=== PATIENT | female | born 1980 | race Caucasian/White ===

== ENCOUNTER 2016-10-09 18:01 | Inpatient (IN) | payer OTHER ==
--- NOTE | 2016-10-09 18:47 | PDOC ---
History of Present Illness - General History Source: Patient, Old Records Exam Limitations: No Limitations - History of Present Illness Initial Comments: 10/09/16 19:46 The patient is a 36 year old female, with a significant past medical history of hepatitis C and polysubstance abuse (Heroin/Cocaine/Benzodiazepines - intermittent use since age 17), who presents to the emergency department from [facility] with wounds to the bilateral upper extremities. The patient presented to [facility] earlier today requesting detox but after an initial evaluation at [facility], she was sent to the ED for further evaluation regarding the wounds to the bilateral upper extremities. The patient states that she has had these wounds since June 2015. The patient states that these wounds initially started out as track solorio but due to stressful life events (the passing of her father after a terminal illness) she began to scratch at the wounds. The patient reports that she went to the ED at [facility] for these symptoms in June 2016, had x-rays done and was discharged on PO antibiotics with instructions to follow up with a wound care clinic. However, the patient reports that she never followed up with wound care. The patient does report a cough, but notes that this has been a chronic issue for years, a result of her daily smoking. The patient denies loss of sensation to the upper extremities. The patient denies chest pain or shortness of breath. The patient denies fever, chills, nausea, vomiting, diarrhea or dysuria. The patient was most recently tested for HIV in June 2016 while at the [facility] ED, the result of which she reports was negative. LMP: the patient reports very irregular menstrual cycles (3 menstrual periods in the past 6 years). Allergies: None reported. Past Surgical History: None reported. Social History: Current everyday smoker (4-10 cigarettes/day). Reported polysubstance abuse: Heroin - last use this morning/Cocaine - last used yesterday/Benzodiazepines - last used yesterday. Denies alcohol use. <Alina Alvarez - Last Filed: 10/09/16 21:25> <Ki Singleton - Last Filed: 10/09/16 22:38> - General Chief Complaint: Wound Stated Complaint: Wound Time Seen by Provider: 10/09/16 18:21 Past History <Alina Alvarez - Last Filed: 10/09/16 21:25> - Past Medical History Anemia: No Asthma: No Cancer: No Cardiac Disorders: No CVA: No COPD: No CHF: No Dementia: No Diabetes: No GI Disorders: No Disorders: No HTN: No Hypercholesterolemia: No Kidney Stones: No Liver Disease: Yes Suicide Attempt (Hx): Yes (tried to overdose in 05/05) Seizures: Yes (A FEW YEARS AGO) Thyroid Disease: No - Reproductive History PID: No - Psycho/Social/Smoking Cessation Hx Anxiety: Yes Suicidal Ideation: No Smoking History: Current every day smoker Have you smoked in the past 12 months: Yes Number of Cigarettes Smoked Daily: 15 'Breaking Loose' booklet given: 10/15/14 Hx Alcohol Use: No Drug/Substance Use Hx: Yes Substance Use Type: Cocaine, Heroin, Tranquilizers Hx Substance Use Treatment: Yes <Ki Singleton - Last Filed: 10/09/16 22:38> - Past Medical History Allergies/Adverse Reactions: Allergies Allergy/AdvReac Type Severity Reaction Status Date / Time No Known Allergies Allergy Verified 10/09/16 19:05 Home Medications: Ambulatory Orders NK [No Known Home Medication] 10/09/16 Review of Systems - Review of Systems Able to Perform ROS?: Yes Comments:: 10/09/16 18:57 CONSTITUTIONAL: Absent: Fever, Chills, Diaphoresis, Generalized Weakness, Malaise, Loss of Appetite HEENT: Absent: Rhinorrhea, Nasal Congestion, Throat Pain, Throat Swelling, Difficulty Swallowing, Mouth Swelling, Ear Pain, Eye Pain, Visual Changes CARDIOVASCULAR: Absent: Chest Pain, Syncope, Palpitations, Irregular Heart Rate, Lightheadedness , Peripheral Edema RESPIRATORY: Absent: Cough, Shortness of Breath, SOB with Exertion, Orthopnea, Wheezing, Stridor, Hemoptysis GASTROINTESTINAL: Absent: Abdominal pain, Abdominal Distension, Nausea, Vomiting, Diarrhea, Constipation, Melena, Hematochezia GENITOURINARY: Absent: Dysuria, Frequency, Urgency, Hesitancy, Flank Pain, Genital Pain MUSCULOSKELETAL: Absent: Myalgia, Arthralgia, Joint Swelling, Back pain, Neck Pain SKIN: Present: +Wounds to the bilateral forearms Absent: Pallor HEMATOLOGIC/IMMUNOLOGIC: Absent: Easy Bleeding, Easy Bruising, Lymphadenopathy, Frequent infections ENDOCRINE: Absent: Unexplained Weight Gain, Unexplained Weight Loss, Heat Intolerance, Cold Intolerance NEUROLOGIC: Absent: Headache, Focal Weakness, Paresthesias, Vertigo, Lightheadedness, Unsteady Gait, Seizure, Mental Status Changes, Incontinence PSYCHIATRIC: Absent: Anxiety, Depression <Alina Alvarez - Last Filed: 10/09/16 21:25> *Physical Exam - Physical Exam Comments: 10/09/16 19:26 GENERAL: The patient is awake, alert, and fully oriented, in no acute distress. HEAD: Normal with no signs of trauma. EYES: Pupils equal, round and reactive to light, extraocular movements intact, sclera anicteric, conjunctiva clear. ENT: Ears normal, nares patent, oropharynx clear without exudates. Moist mucous membranes. NECK: Normal range of motion, supple without lymphadenopathy, JVD, or masses. LUNGS: Breath sounds equal, clear to auscultation bilaterally. No wheezes, and no crackles. HEART: Regular rate and rhythm, normal S1 and S2 without murmur, rub or gallop. ABDOMEN: Soft, nontender, normoactive bowel sounds. No guarding, no rebound. No masses. EXTREMITIES: See SKIN section. Normal range of motion, no edema. No clubbing or cyanosis. NEUROLOGICAL: Cranial nerves II through XII grossly intact. Normal speech, normal gait. PSYCH: Normal mood, normal affect. SKIN: Left upper extremity, 5 x 12 cm chronic ulcer with areas of pink granulation and yellow/green exudate, small areas of escar. Right upper extremity, 7 x 6 cm chronic granulating ulcer of the ulnar forearm below the elbow. Hyperpigmentation around the right and left ankles, bilateral scarring and induration from previous injections. <Alina Alvarez - Last Filed: 10/09/16 21:25> ED Treatment Course - LABORATORY CBC & Chemistry Diagram: 10/09/16 19:50 10/09/16 19:00 <Alina Alvarez - Last Filed: 10/09/16 21:25> - LABORATORY CBC & Chemistry Diagram: 10/09/16 19:50 10/09/16 19:00 <Ki Signleton - Last Filed: 10/09/16 22:38> Medical Decision Making - Medical Decision Making 10/09/16 21:25 EXAM: RAD/CHEST PA & LAT Reviewed By: Dr. Farid Abdo IMPRESSION: Unremarkable examination without evidence of acute lung disease. EXAM: RAD/FOREARM - RIGHT Reviewed By: Dr. Kaiden Dumont IMPRESSION: The alignment is satisfactory. No gross bone or joint abnormality is seen. No bone destruction or periosteal evaluation is identified. There is significant skin irregularity along posterior aspect of the proximal and mid right forearm consistent with the clinical history of skin ulcers with soft tissue air. EXAM: RAD/FOREARM - LEFT Reviewed By: Dr. Kaiden Dumont IMPRESSION: The alignment is satisfactory. No gross bone or joint abnormality is seen. No bone destruction or periosteal evaluation is identified. There is significant skin irregularity consistent with clinical history of ulcerations seen along posterior aspect of the proximal mid and mid to distal portion of the forearm with soft tissue. <Alina Alvarez - Last Filed: 10/09/16 21:25> - Medical Decision Making 10/09/16 20:53 Patient with history of polysubstance abuse including heroin, cocaine, and benzodiazepines. She presented today to [facility] for admission for detox. They evaluated her medically and sent her to the [facility] for medical admission for treatment of her chronic upper extremity skin ulcers for wound care along with detox consultation with Dr. Scottie Borjas. Laboratory studies reviewed. White blood cell count is normal. The patient has microcytic anemia. ESR and CRP are pending. Renal function is normal. Patient has a history of hepatitis C without cirrhosis. Her liver function tests are satisfactory. Patient will be admitted for wound evaluation of her upper extremities, dressing changes, and substance abuse consultation with Dr. Scottie Borjas. Laboratory Tests 10/09/16 10/09/16 19:00 19:50 WBC 4.2 D RBC 4.72 Hgb 11.1 D Hct 34.6 MCV 73.4 L MCHC 31.9 L RDW 16.5 H D Plt Count 268 D MPV 7.6 Neutrophils % 52.1 Lymphocytes % 37.7 Monocytes % 6.5 Eosinophils % 3.3 Basophils % 0.4 Sodium 138 Potassium 3.8 Chloride 105 Carbon Dioxide 26 Anion Gap 7 L BUN 9 Creatinine 0.6 Creat Clearance w eGFR > 60 Random Glucose 96 Calcium 8.2 L Total Bilirubin 0.2 D AST 29 D ALT 22 Alkaline Phosphatase 90 Total Protein 7.8 Albumin 3.0 L 10/09/16 20:58 The scribe's documentation has been prepared under my direction and personally reviewed by me in its entirety. I have confirmed that the note above accurately reflects all work, treatment, procedures, and medical decision- making performed by me. 10/09/16 21:13 <Ki Singleton - Last Filed: 10/09/16 22:38> *DC/Admit/Observation/Transfer - Attestations Scribe Attestion: 10/09/16 18:55 Documentation prepared by Alina Alvarez, acting as coroner/medical examiner for Ki Singleton MD. <Alina Alvarez - Last Filed: 10/09/16 21:25> - Discharge Dispostion Admit: Yes Decision to Admit order Date/Time: 10/09/16 22:[address] Michelle Gold. Accepted for admission. <Ki Singleton - Last Filed: 10/09/16 22:38> Diagnosis at time of Disposition: Polysubstance (including opioids) dependence with physiol dependence Ulcer of upper extremity Qualifiers: Non-pressure ulcer stage: with necrosis of muscle Qualified Code(s): L98.493 - Non-pressure chronic ulcer of skin of other sites with necrosis of muscle - Discharge Dispostion Condition at time of disposition: Stable
[2016-10-09 20:03] LABS: BASOPHIL 0.4 % (0-2.0); EOSINOPHIL 3.3 % (0-4.5); MCH 23.4 pg (25.7-33.7); MCHC 31.9 g/dl (32.0-36.0); MEAN CELL VOLUME 73.4 fl (80-96); MEAN PLT VOLUME 7.6 fl (7.5-11.1); NEUTROPHILS 52.1 % (42.8-82.8); PLATELET COUNT 268 K/MM3 (134-434); RDW 16.5 % (11.6-15.6); WHITE BLOOD COUNT 4.2 K/mm3 (4.0-10.0)
[2016-10-09 20:28] LABS: ALK PHOS 90 U/L (45-117); ANION GAP 7 (8-16); BILIRUBIN,TOTAL 0.2 mg/dL (0.2-1.0); CALCIUM 8.2 mg/dL (8.5-10.1); CO2 26 mmol/L (21-32); COCKROFT - GAULT 108.7915; CREATININE 0.6 mg/dL (0.55-1.02); GLUCOSE,RANDOM 96 mg/dL (74-106); SGOT/AST 29 U/L (15-37); SGPT/ALT 22 U/L (12-78); TOT PROT 7.8 g/dl (6.4-8.2)
[2016-10-09] MEDS ORDERED: METHADONE HCL 10 MG TABLET (FOR DETOX USE ONLY) PO ONE (21:14)
[2016-10-09] MEDS ORDERED: METHADONE HCL 10 MG TABLET ONE (21:24)
[2016-10-09] MEDS ORDERED: METHADONE HCL 10 MG TABLET PO ONE (21:30)
--- NOTE | 2016-10-09 23:55 | HP ---
CHIEF COMPLAINT: Bilateral Upper Extremity Ulcers, Detox- Heroin, Cocaine, Benzodiazepine PCP: None HISTORY OF PRESENT ILLNESS: This is a 36 y/o female with a past medical history of Polysubstance Abuse- Heroin, Cocaine, Benzodiazepine. Who presents to the emergency department from [facility] for Detox sent in for evaluation of bilateral upper extremity ulcers. The patient states that she has had these wounds since June 2015. The patient states that these wounds initially started out as track solorio but due to stressful life events (the passing of her father after a terminal illness) she began to scratch at the wounds. The patient reports that she went to the ED at [facility] for these symptoms in June 2016, had x-rays done and was discharged on PO antibiotics with instructions to follow up with a wound care clinic. The patient reports completing the full course of antibiotics. However, the patient reports that she never followed up with wound care. She reports cleaning the wounds at home with soap and water, using a topical ointment and applying gauze. Patient reports that when she uses the gauze she notes yellow drainage and an odor. The patient does report a cough, but notes that this has been a chronic issue for years, a result of her daily smoking. The patient denies loss of sensation to the upper extremities. The patient denies chest pain or shortness of breath. The patient denies fever, chills, nausea, vomiting, diarrhea or dysuria. The patient was most recently tested for HIV in June 2016 while at the [facility] ED, the result of which she reports was negative. LMP: the patient reports very irregular menstrual cycles (3 menstrual periods in the past 6 years ). ER course was notable for: (1) Xray- B/L forearm (2) No WBC, afebrile (3) CRP 2.4, ESR 42 Recent Travel: [place] PAST MEDICAL HISTORY: Polysubstance Abuse Anxiety Depression PTSD Seizures (age 23) PAST SURGICAL HISTORY: None Social History: Smoking: Cigarettes daily Alcohol: Denies Drugs: Heroin, Cocaine, Benzodiazipines, last use today Family History: None Allergies No Known Allergies Allergy (Verified 10/09/16 19:05) HOME MEDICATIONS: Home Medications Medication Instructions Recorded NK [No Known Home Medication] 10/09/16 REVIEW OF SYSTEMS CONSTITUTIONAL: Absent: fever, chills, diaphoresis, generalized weakness, malaise, loss of appetite, weight change HEENT: Absent: rhinorrhea, nasal congestion, throat pain, throat swelling, difficulty swallowing, mouth swelling, ear pain, eye pain, visual changes CARDIOVASCULAR: Absent: chest pain, syncope, palpitations, irregular heart rate, lightheadedness , peripheral edema RESPIRATORY: Absent: cough, shortness of breath, dyspnea with exertion, orthopnea, wheezing, stridor, hemoptysis GASTROINTESTINAL: Absent: abdominal pain, abdominal distension, nausea, vomiting, diarrhea, constipation, melena, hematochezia GENITOURINARY: Absent: dysuria, frequency, urgency, hesitancy, hematuria, flank pain, genital pain MUSCULOSKELETAL: Absent: myalgia, arthralgia, joint swelling, back pain, neck pain SKIN: bilateral upper extremity ulcers Absent: rash, itching, pallor HEMATOLOGIC/IMMUNOLOGIC: Absent: easy bleeding, easy bruising, lymphadenopathy, frequent infections ENDOCRINE: Absent: unexplained weight gain, unexplained weight loss, heat intolerance, cold intolerance NEUROLOGIC: Absent: headache, focal weakness or paresthesias, dizziness, unsteady gait, seizure, mental status changes, bladder or bowel incontinence PSYCHIATRIC: Absent: anxiety, depression, suicidal or homicidal ideation, hallucinations. PHYSICAL EXAMINATION GENERAL:Thin, awake, alert, and fully oriented, in no acute distress. HEAD: Normal with no signs of trauma. EYES: Pupils equal, round and reactive to light, extraocular movements intact, sclera anicteric, conjunctiva clear. No lid lag. EARS, NOSE, THROAT: Ears normal, nares patent, oropharynx clear without exudates. Moist mucous membranes. NECK: Normal range of motion, supple without lymphadenopathy, JVD, or masses. LUNGS: Breath sounds equal, clear to auscultation bilaterally. No wheezes, and no crackles. No accessory muscle use. HEART: Regular rate and rhythm, normal S1 and S2 without murmur, rub or gallop. ABDOMEN: Soft, nontender, not distended, normoactive bowel sounds, no guarding, no rebound, no masses. No hepatomegaly or splenomegaly. MUSCULOSKELETAL: Normal range of motion at all joints. No bony deformities or tenderness. No CVA tenderness. UPPER EXTREMITIES: 2+ pulses, warm, well-perfused. No cyanosis. No clubbing. No peripheral edema. LOWER EXTREMITIES: 2+ pulses, warm, well-perfused. No calf tenderness. No peripheral edema. NEUROLOGICAL: Cranial nerves II-XII intact. Normal speech. Normal gait. PSYCHIATRIC: Cooperative. Good eye contact. Appropriate mood and affect. SKIN: Left upper extremity, 5 x 12 cm chronic ulcer with areas of pink granulation and yellow/green exudate, small areas of escar. Right upper extremity, 7 x 6 cm chronic granulating ulcer of the ulnar forearm below the elbow. Hyperpigmentation around the right and left ankles, bilateral scarring and induration from previous injection. normal capillary refill. Laboratory Results - last 24 hr 3 10/09/16 10/09/16 10/09/16 19:00 19:00 19:00 WBC RBC Hgb Hct MCV MCHC RDW Plt Count MPV Neutrophils % Lymphocytes % Monocytes % Eosinophils % Basophils % ESR 42 H Sodium 138 Potassium 3.8 Chloride 105 Carbon Dioxide 26 Anion Gap 7 L BUN 9 Creatinine 0.6 Creat Clearance w eGFR > 60 Random Glucose 96 Calcium 8.2 L Total Bilirubin 0.2 D AST 29 D ALT 22 Alkaline Phosphatase 90 C-Reactive Protein 2.4 H Total Protein 7.8 Albumin 3.0 L 3 10/09/16 19:50 WBC 4.2 D RBC 4.72 Hgb 11.1 D Hct 34.6 MCV 73.4 L MCHC 31.9 L RDW 16.5 H D Plt Count 268 D MPV 7.6 Neutrophils % 52.1 Lymphocytes % 37.7 Monocytes % 6.5 Eosinophils % 3.3 Basophils % 0.4 ESR Sodium Potassium Chloride Carbon Dioxide Anion Gap BUN Creatinine Creat Clearance w eGFR Random Glucose Calcium Total Bilirubin AST ALT Alkaline Phosphatase C-Reactive Protein Total Protein Albumin ASSESSMENT/PLAN: This is a 36 y/o female with a PMHx of: Polysubstance Abuse- Heroin, Cocaine, Benzodiazepines. Admitted for Bilateral Upper Extremity Ulcers, Detox for further evaluation of their emergent condition. 1. ID: Bilateral Upper Extremity Ulcers - Chronic likely secondary to IVDU vs Osteomyeltitis - Xray of upper extremity- see above - No WBC, Afebrile - Appreciate ID Consult - Wound Care Nurse - Dressing changes - CBC in am - Monitor vitals 2. PolySubstance Abuse - Appreciate Detox Consult - Given Methadone in ED - Will order Methadone x1 for AM for withdrawal - Valium prn withdrawal - Drug cessation discussed with patient 3. Tobacco Dependency - Nicoderm Patch - Smoking Cessation discussed with patient 4. Seizure Disorder - Seizure Precautions 4. FEN - Patient tolerates PO fluids - Replete lytes as indicated - Regular Diet 5. DVT Prophylaxis - OOB Code Status: Patient is a Full Code Problem List - Problem (1) Ulcer of upper extremity Code(s): L98.499 - NON-PRESSURE CHRONIC ULCER OF SKIN OF SITES W UNSP SEVERITY Qualifiers: Non-pressure ulcer stage: with necrosis of muscle Qualified Code(s): L98.493 - Non-pressure chronic ulcer of skin of other sites with necrosis of muscle (2) Polysubstance (including opioids) dependence with physiol dependence Code(s): F19.20 - OTHER PSYCHOACTIVE SUBSTANCE DEPENDENCE, UNCOMPLICATED (3) Cocaine dependence Code(s): F14.20 - COCAINE DEPENDENCE, UNCOMPLICATED (4) Heroin dependence Code(s): F11.20 - OPIOID DEPENDENCE, UNCOMPLICATED (5) MDD (major depressive disorder), recurrent episode, moderate Code(s): F33.1 - MAJOR DEPRESSIVE DISORDER, RECURRENT, MODERATE (6) PTSD (post-traumatic stress disorder) Code(s): F43.10 - POST-TRAUMATIC STRESS DISORDER, UNSPECIFIED (7) Anxiety and depression Code(s): F41.8 - OTHER SPECIFIED ANXIETY DISORDERS (8) Nicotine dependence Code(s): F17.200 - NICOTINE DEPENDENCE, UNSPECIFIED, UNCOMPLICATED (9) DVT prophylaxis Code(s): [id number] - Visit type - Emergency Visit Emergency Visit: Yes ED Registration Date: 10/09/16 Care time: The patient presented to the Emergency Department on the above date and was hospitalized for further evaluation of their emergent condition. - New Patient This patient is new to me today: Yes Date on this admission: 10/09/16 - Critical Care Critical Care patient: No
[2016-10-10 04:43] VITALS: BMI 19.8
[2016-10-10] MEDS ORDERED: METHADONE HCL 10 MG TABLET ONE (07:28)
[2016-10-10] MEDS: METHADONE HCL 10 MG TABLET PO ONE ×2 (07:29→12:25)
[2016-10-10] MEDS: diazePAM 5 MG TABLET PO PRN ×2 (07:32→20:40)
--- NOTE | 2016-10-10 09:58 | EKG ---
Test Reason : Blood Pressure : / mmHG Vent. Rate : 091 BPM Atrial Rate : 091 BPM P-R Int : 156 ms QRS Dur : 096 ms QT Int : 378 ms P-R-T Axes : 081 -50 028 degrees QTc Int : 464 ms NORMAL SINUS RHYTHM POSSIBLE LEFT ATRIAL ENLARGEMENT LEFT AXIS DEVIATION INCOMPLETE RIGHT BUNDLE BRANCH BLOCK ABNORMAL ECG NO PREVIOUS ECGS AVAILABLE Confirmed by RICHARD ELLIOTT MD ([id number]) on 10/10/2016 9:58:16 AM Referred By: Confirmed By:RICHARD ELLIOTT MD
--- NOTE | 2016-10-10 12:05 | PN ---
Physical Exam: SUBJECTIVE: Patient seen and examined. She denies pain or discomfort on the ulcerations of her arms. OBJECTIVE: Patient is a very thin female in no acute distress during exam. She has two very large wounds on her bilateral arms: Left upper forearm with large chronic ulcer 5w x 12L Right upper forearm with large chronic ulcer of 7w x 6cm Both wounds with pink granulation tissue, no odor with yellow exudate She also has bilateral ankle areas of discoloration track alea scars from previous drug injections blood cultures ordered Vital Signs Period Temp Pulse Resp BP Sys/Richardson Pulse Ox Last 24 Hr 97.9 F-98.5 F 83-89 18-18 133-142/69-86 94 GENERAL: The patient is awake, alert, and fully oriented, in no acute distress. HEAD: Normal with no signs of trauma. EYES: PERRL, extraocular movements intact, sclera anicteric, conjunctiva clear. No ptosis. ENT: Ears normal, nares patent, oropharynx clear without exudates, moist mucous membranes. NECK: Trachea midline, full range of motion, supple. LUNGS: Breath sounds equal, some scattered rhonchi on bilateral lower lobes, mild congestion HEART: Regular rate and rhythm, S1, S2 without murmur, rub or gallop. ABDOMEN: Soft, nontender, nondistended, normoactive bowel sounds, no guarding, no rebound, no hepatosplenomegaly, no masses. EXTREMITIES: 2+ pulses, warm, well-perfused, no edema. NEUROLOGICAL: Normal speech, gait not observed. PSYCH: Normal mood, normal affect. SKIN: She has two very large wounds on her bilateral arms (see above) and multiple bilateral ankle discoloration, track alea, scars from iv drug use Active Medications Generic Name Dose Route Start Last Admin Trade Name Freq PRN Reason Stop Dose Admin Diazepam 10 mg 10/10/16 00:01 10/10/16 07:32 Valium - PO 10/13/16 00:01 10 mg Q4H PRN Administration WITHDRAWAL(CONT SUBST) Vancomycin HCl 1,250 mg/ 250 mls @ 125 mls/hr 10/10/16 12:00 Dextrose IVPB DAILY@1200 MAURY Protocol Piperacillin Sod/Tazobactam Sod 50 mls @ 100 mls/hr 10/10/16 12:00 Zosyn 3.375gm Ivpb (Pre-Docked) IVPB Q8H-IV MAURY Protocol Methadone HCl 10 mg 10/10/16 23:00 Dolophine - PO 10/10/16 23:01 ONCE@2300 ONE Methadone HCl 20 mg 10/11/16 10:00 Dolophine - PO 10/11/16 10:01 ONCE ONE Methadone HCl 10 mg 10/14/16 10:00 Dolophine - PO 10/14/16 10:01 ONCE ONE Methadone HCl 15 mg 10/12/16 10:00 Dolophine - PO 10/12/16 10:01 ONCE ONE Methadone HCl 15 mg 10/13/16 10:00 Dolophine - PO 10/13/16 10:01 ONCE ONE Methadone HCl 5 mg 10/15/16 06:00 Dolophine - PO 10/15/16 06:01 ONCE@0600 ONE ASSESSMENT/PLAN: Patient is a 36 year old female with a significant past medical history of polysubstance abuse and IV drug use. She presents to the ED on 10/09/2016 and was admitted for opioid dependence and ulcerations of bilateral upper extremity. Patient states she has been taking care of the wounds herself at home and often notices yellow drainage and an odor. She was recently at the ED at [place] earlier this year and was discharged on PO antibiotics with instructions to follow up with a wound care clinic but she never did. Muscular Skeletal/ID Bilateral upper extremity forearm wounds Assessment/Plan: Large bilateral wound on forearms exposing the underlying flesh There is serosang drainage, mild odor with yellow slough/tissue Patient denies pain to these ulcerations States she has these ulcerations secondary to IV drug use On vanco and zosyn started 10/10/2016 Placed consult for plastic surgery to evaluate for possible skin grafts WBC within normal limits, remains afebrile and hemodynamically stable antibiotics for prophylactic use as pt is a high risk for infection Wound cultured, Wound care consulted for orders Blood cultures ordered Psyche Polysubstance abuse Assessment/Plan: On methadone taper Valium as needed F.E.N. Fluids: Can tolerate PO Electrolytes: within normal limits Nutrition: regular diet Prophylaxis: GI: Protonix 40mg PO DVT: OOB ambulation, SCDs when in bed If prolonged stay will order AC Disposition. Requires inpatient hospitalization. Full Code. Visit type - Emergency Visit Emergency Visit: Yes ED Registration Date: 10/09/16 Care time: The patient presented to the Emergency Department on the above date and was hospitalized for further evaluation of their emergent condition. - New Patient This patient is new to me today: Yes Date on this admission: 10/10/16 - Critical Care Critical Care patient: No - Discharge Referral Referred to [facility] No
[2016-10-10 13:26] LABS: BASOPHIL 0.2 % (0-2.0); EOSINOPHIL 2.6 % (0-4.5); MCH 23.4 pg (25.7-33.7); MCHC 31.6 g/dl (32.0-36.0); MEAN CELL VOLUME 73.9 fl (80-96); MEAN PLT VOLUME 7.4 fl (7.5-11.1); NEUTROPHILS 52.5 % (42.8-82.8); PLATELET COUNT 259 K/MM3 (134-434); RDW 16.1 % (11.6-15.6); WHITE BLOOD COUNT 3.7 K/mm3 (4.0-10.0)
[2016-10-10 13:49] LABS: ALBUMIN 2.8 g/dl (3.4-5.0); ALK PHOS 88 U/L (45-117); ANION GAP 9 (8-16); BILIRUBIN,TOTAL 0.3 mg/dL (0.2-1.0); CALCIUM 8.4 mg/dL (8.5-10.1); CO2 25 mmol/L (21-32); CREATININE 0.6 mg/dL (0.55-1.02); GLUCOSE,RANDOM 133 mg/dL (74-106); SGOT/AST 25 U/L (15-37); SGPT/ALT 18 U/L (12-78); TOT PROT 7.4 g/dl (6.4-8.2)
--- NOTE | 2016-10-10 14:46 | CONSULT ---
[id number] involving both Forearms, - History of Present Illness History of Present Illness: The patient is a 36 year old female, with a significant past medical history of hepatitis C and polysubstance abuse (Heroin/Cocaine/Benzodiazepines - intermittent use since age 17), who presents to the emergency department from [facility] with wounds to the bilateral upper extremities. The patient presented to [facility] earlier today requesting detox but after an initial evaluation at detox, she was sent to the ED for further evaluation regarding the wounds to the bilateral upper extremities. The patient states that she has had these wounds since June 2015. The patient states that these wounds initially started out as track solorio but due to stressful life events (the passing of her father after a terminal illness) she began to scratch at the wounds. The patient reports that she went to the ED at [facility] for these symptoms in June 2016, had x-rays done and was discharged on PO antibiotics with instructions to follow up with a wound care clinic. However, the patient reports that she never followed up with wound care. The patient does report a cough, but notes that this has been a chronic issue for years, a result of her daily smoking. The patient denies loss of sensation to the upper extremities. The patient denies chest pain or shortness of breath. The patient denies fever, chills, nausea, vomiting, diarrhea or dysuria. The patient was most recently tested for HIV in June 2016 while at the [facility] ED, the result of which she reports was negative. LMP: the patient reports very irregular menstrual cycles (3 menstrual periods in the past 6 years). Allergies: None reported. Past Surgical History: None reported. Social History: Current everyday smoker (4-10 cigarettes/day). Reported polysubstance abuse: Heroin - last use this morning/Cocaine - last used yesterday/Benzodiazepines - last used yesterday. Denies alcohol use. - Past Medical History ...LMP: 10/14/14 - Alcohol/Substance Use Hx Alcohol Use: Yes - Smoking History Smoking history: Current every day smoker Have you smoked in the past 12 months: Yes Aproximately how many cigarettes per day: 15 Home Medications - Allergies Allergies/Adverse Reactions: Allergies Allergy/AdvReac Type Severity Reaction Status Date / Time No Known Allergies Allergy Verified 10/09/16 19:05 - Home Medications Home Medications: Ambulatory Orders Silver Sulfadiazine 1% Top Cr [Silvadene -] 1 applic TP BID #1 jar 10/15/16 Sulfamethoxazole/Trimethoprim [Bactrim DS -] 1 each PO BID #10 tablet 10/15/16 Family Disease History - Family Disease History Family Disease History: Diabetes: Grandparent (HTN), Heart Disease: Grandparent , CA: Father (prostate), Mother (laryngeal) Physical Exam Vital Signs: Vital Signs Temperature 97.9 F 10/10/16 06:00 Pulse Rate 83 10/10/16 06:00 Respiratory Rate 18 10/10/16 06:00 Blood Pressure 142/69 10/10/16 06:00 O2 Sat by Pulse Oximetry (%) 94 L 10/10/16 04:58 Labs: CBC, BMP 10/10/16 13:10 10/10/16 13:10 Assessment/Plan Evaluation : History Examination, Decision Focused Examination of both forearms: Full thickness loss of skin with fibrinous tissue, granulation tissue skin edges hyperbole, discharge positive, no clinical odor, erythema, odor Moving wrist, fingers well including elbow function Recommendation : Plastic reconstruction with skin grafts; Wound is not ready all grafts will be lost and new wounds will be created . Silvidine cream BID Follow Up in [place] wound clinic while patient is being treated for several conditions (outlined) Psychology / Evaluations and treatment , patient anxiety, self inflicting injuries and urge to eat her own scabs She may benefit with wound care in wound clinic, Wound Vac, Porcine skin as temporary wound dressing after infection is cleared Thanks Dr Kurtz
[2016-10-10] MEDS: VANCOMYCIN 1,250 MG in DEXTROSE 5%-WATER - 250 ML IVPB SCH (16:05)
--- NOTE | 2016-10-10 16:44 | CONSULT ---
Consult Detox [facility] Reason for Current Admission/Consult: Heroin withdrawal sx. Referred by:: Brittni Eric NP - History History of Present Illness: 36 y/o woman with a long hx. of drug dependence is admitted for large open wound both upper extremities. - History Source History Provided By: Patient, Medical Record Limitations to Obtaining History: No Limitations - Alcohol/Substance Use Hx Substance Use: Yes - Current Drug/Alcohol Use Alprazolam (Xanax) Route: Oral Frequency: Daily Amount used: 6mg Age of first use: 29 Date of Last Use: 10/08/16 Heroin Route: Injection Frequency: Daily Amount used: 5-12 bags Age of first use: 17 Date of Last Use: 10/09/16 - Past Medical History ...LMP: 10/14/14 - Significant Medical Findings: Laboratory Last Values WBC 4.6 K/mm3 (4.0-10.0) D 10/13/16 05:58 RBC 4.28 M/mm3 (3.60-5.2) 10/13/16 05:58 Hgb 10.3 GM/dL (10.7-15.3) L 10/13/16 05:58 Hct 31.1 % (32.4-45.2) L 10/13/16 05:58 MCV 72.7 fl (80-96) L 10/13/16 05:58 MCHC 33.1 g/dl (32.0-36.0) 10/13/16 05:58 RDW 16.2 % (11.6-15.6) H 10/13/16 05:58 Plt Count 256 K/MM3 (134-434) 10/13/16 05:58 MPV 7.6 fl (7.5-11.1) 10/13/16 05:58 Neutrophils % 44.0 % (42.8-82.8) 10/13/16 05:58 Lymphocytes % 42.0 % (8-40) H 10/13/16 05:58 Monocytes % 11.1 % (3.8-10.2) H 10/13/16 05:58 Eosinophils % 2.6 % (0-4.5) 10/13/16 05:58 Basophils % 0.3 % (0-2.0) 10/13/16 05:58 ESR 42 mm/hr (0-20) H 10/09/16 19:00 Sodium 137 mmol/L (136-145) 10/13/16 05:58 Potassium 4.0 mmol/L (3.5-5.1) 10/13/16 05:58 Chloride 100 mmol/L (98-107) 10/13/16 05:58 Carbon Dioxide 29 mmol/L (21-32) 10/13/16 05:58 Anion Gap 8 (8-16) 10/13/16 05:58 BUN 10 mg/dL (7-18) 10/13/16 05:58 Creatinine 0.6 mg/dL (0.55-1.02) 10/13/16 05:58 Creat Clearance w eGFR > 60 (>60) 10/13/16 05:58 Random Glucose 100 mg/dL (74-106) 10/13/16 05:58 Calcium 8.2 mg/dL (8.5-10.1) L 10/13/16 05:58 Total Bilirubin 0.2 mg/dL (0.2-1.0) 10/13/16 05:58 AST 55 U/L (15-37) H 10/13/16 05:58 ALT 40 U/L (12-78) 10/13/16 05:58 Alkaline Phosphatase 94 U/L (45-117) 10/13/16 05:58 C-Reactive Protein 2.4 MG/DL (0.00-0.3) H 10/09/16 19:00 Total Protein 7.0 g/dl (6.4-8.2) 10/13/16 05:58 Albumin 2.8 g/dl (3.4-5.0) L 10/13/16 05:58 labs noted COWS - Scale Resting Pulse: 0= IL 80 or Below Sweatin=Flushed/Facial Moisture Restless Observation: 1= Difficult to Sit Still Pupil Size: 1= Pupils >than Normal Bone or Joint Aches: 2= Severe Diffuse Aches Runny Nose/ Eye Tearin= Runny Nose/Eyes GI Upset > 30mins: 2= Nausea/Diarrhea Tremor Observation: 2= Slight Tremor Visible Yawning Observation: 1= 1-2x During Session Anxiety or Irritability: 2=Irritable/Anxious Goose Flesh Skin: 0=Smooth Skin COWS Score: 15 Assessment Plan - Diagnosis (1) Opioid dependence with withdrawal Status: Acute - Medication Detox Regimen/Protocol: Methadone
[2016-10-10] MEDS: PIPERACILLIN/TAZOB 3.375 GM 50 ML IVPB SCH ×2 (17:58→18:16)
[2016-10-10] MEDS: NICOTINE 14 MG/24 HOURS TOPICAL PATCH TD SCH (21:25)
[2016-10-10] MEDS: BENZOCAINE 20 % GEL 9 GM TUBE MM PRN (22:14)
[2016-10-10] MEDS ORDERED: METHADONE HCL 10 MG TABLET PO ONE (23:00)
[2016-10-11] MEDS: PIPERACILLIN/TAZOB 3.375 GM 50 ML IVPB SCH ×3 (01:52→18:09)
[2016-10-11 09:34] LABS: BASOPHIL 0.5 % (0-2.0); EOSINOPHIL 3.3 % (0-4.5); MCH 23.6 pg (25.7-33.7); MEAN CELL VOLUME 73.9 fl (80-96); MEAN PLT VOLUME 7.4 fl (7.5-11.1); NEUTROPHILS 37.5 % (42.8-82.8); PLATELET COUNT 235 K/MM3 (134-434); RDW 16.6 % (11.6-15.6); WHITE BLOOD COUNT 2.9 K/mm3 (4.0-10.0)
[2016-10-11 09:59] LABS: ALBUMIN 2.7 g/dl (3.4-5.0); ANION GAP 8 (8-16); CALCIUM 8.1 mg/dL (8.5-10.1); CO2 27 mmol/L (21-32); GLUCOSE,RANDOM 81 mg/dL (74-106)
[2016-10-11] MEDS ORDERED: METHADONE HCL 10 MG TABLET PO ONE (10:00)
[2016-10-11 10:03] LABS: ALK PHOS 83 U/L (45-117); BILIRUBIN,TOTAL 0.3 mg/dL (0.2-1.0); CREATININE 0.6 mg/dL (0.55-1.02); SGOT/AST 38 U/L (15-37); SGPT/ALT 26 U/L (12-78); TOT PROT 7.2 g/dl (6.4-8.2)
[2016-10-11] MEDS: NICOTINE 14 MG/24 HOURS TOPICAL PATCH TD SCH (10:10)
--- NOTE | 2016-10-11 10:14 | PN ---
Physical Exam: SUBJECTIVE: Patient seen and examined. She is very upset, wants to go smoke a cigarette. Wants to go back to [facility] to detox. OBJECTIVE: wound culture still pending but growing rare gram pos. cocci in pairs Patient very anxious, advised her to stay until we can identify the wound culture and prescribe the appropriate antibiotics Patient states she wants to go home against medical advice Dr. Comer and I spoke to patient and asked her to reconsider leaving AMA, pt to decide. Vital Signs Period Temp Pulse Resp BP Sys/Richardson Pulse Ox Last 24 Hr 97.8 F-98.7 F 71-86 18-18 107-131/60-76 96 GENERAL: The patient is awake, alert, and fully oriented, in no acute distress. HEAD: Normal with no signs of trauma. EYES: PERRL, extraocular movements intact, sclera anicteric, conjunctiva clear. No ptosis. ENT: Ears normal, nares patent, oropharynx clear without exudates, moist mucous membranes. NECK: Trachea midline, full range of motion, supple. LUNGS: Breath sounds equal, some scattered rhonchi on bilateral lower lobes, mild congestion HEART: Regular rate and rhythm, S1, S2 without murmur, rub or gallop. ABDOMEN: Soft, nontender, nondistended, normoactive bowel sounds, no guarding, no rebound, no hepatosplenomegaly, no masses. EXTREMITIES: 2+ pulses, warm, well-perfused, no edema. NEUROLOGICAL: Normal speech, gait not observed. PSYCH: Anxious @ times SKIN: She has two very large wounds on her bilateral arms and multiple bilateral ankle discoloration, track solorio, scars from iv drug use. Left forearm with large chronic ulcer - exposed flesh: 5cm x 12cm x 0.2 depth Right upper forearm with large chronic ulcer - exposed flesh: 7cm W x 6cmL x 0.2 depth Laboratory Results - last 24 hr 10/10/16 10/10/16 10/11/16 13:10 13:10 08:25 WBC 3.7 L 2.9 L RBC 4.46 4.75 Hgb 10.4 L 11.2 Hct 33.0 35.1 MCV 73.9 L 73.9 L MCHC 31.6 L 32.0 RDW 16.1 H 16.6 H Plt Count 259 235 MPV 7.4 L 7.4 L Neutrophils % 52.5 37.5 L D Lymphocytes % 38.0 50.5 H D Monocytes % 6.7 8.2 Eosinophils % 2.6 3.3 Basophils % 0.2 0.5 Sodium 141 Potassium 4.0 Chloride 107 Carbon Dioxide 25 Anion Gap 9 BUN 8 Creatinine 0.6 Creat Clearance w eGFR > 60 Random Glucose 133 H D Calcium 8.4 L Total Bilirubin 0.3 D AST 25 ALT 18 Alkaline Phosphatase 88 Total Protein 7.4 Albumin 2.8 L 10/11/16 08:25 WBC RBC Hgb Hct MCV MCHC RDW Plt Count MPV Neutrophils % Lymphocytes % Monocytes % Eosinophils % Basophils % Sodium 142 Potassium 4.3 Chloride 107 Carbon Dioxide 27 Anion Gap 8 BUN 8 Creatinine 0.6 Creat Clearance w eGFR > 60 Random Glucose 81 D Calcium 8.1 L Total Bilirubin 0.3 AST 38 H D ALT 26 D Alkaline Phosphatase 83 Total Protein 7.2 Albumin 2.7 L Active Medications Generic Name Dose Route Start Last Admin Trade Name Freq PRN Reason Stop Dose Admin Benzocaine 1 applic 10/10/16 20:27 10/10/16 22:14 Anbesol - MM 1 applic Q2H PRN Administration PAIN Diazepam 10 mg 10/10/16 00:01 10/10/16 20:40 Valium - PO 10/13/16 00:01 10 mg Q4H PRN Administration WITHDRAWAL(CONT SUBST) Vancomycin HCl 1,250 mg/ 250 mls @ 125 mls/hr 10/10/16 12:00 10/10/16 16:05 Dextrose IVPB 125 mls/hr DAILY@1200 MAURY Administration Protocol Piperacillin Sod/Tazobactam Sod 50 mls @ 100 mls/hr 10/10/16 12:00 10/11/16 01: 52 Zosyn 3.375gm Ivpb (Pre-Docked) IVPB 100 mls/hr Q8H-IV MAURY Administration Protocol Methadone HCl 10 mg 10/14/16 10:00 Dolophine - PO 10/14/16 10:01 ONCE ONE Methadone HCl 15 mg 10/12/16 10:00 Dolophine - PO 10/12/16 10:01 ONCE ONE Methadone HCl 15 mg 10/13/16 10:00 Dolophine - PO 10/13/16 10:01 ONCE ONE Methadone HCl 5 mg 10/15/16 06:00 Dolophine - PO 10/15/16 06:01 ONCE@0600 ONE Nicotine 14 mg 10/10/16 21:00 10/10/16 21:25 Nicoderm Patch - TD 14 mg DAILY MAURY Administration ASSESSMENT/PLAN: Patient is a 36 year old female with a significant past medical history of polysubstance abuse and IV drug use. She presents to the ED on 10/09/2016 and was admitted for opioid dependence and ulcerations of bilateral upper extremity. Patient states she has been taking care of the wounds herself at home and often notices yellow drainage and an odor. She was recently at the ED at [facility] earlier this year and was discharged on PO antibiotics with instructions to follow up with a wound care clinic but she never did. Muscular Skeletal/ID Bilateral upper extremity forearm wounds Assessment/Plan: Large bilateral wound on forearms exposing the underlying flesh There is serosang drainage, mild odor with yellow slough/tissue Patient denies pain to these ulcerations States she has these ulcerations secondary to IV drug use On vanco and zosyn started 10/10/2016 ESR and Creact. protein elevated As per plastic surgery, pt is not currently a candidate for skin grafts She would need to follow up at the wound care clinic for continued wound care WBC within normal limits, remains afebrile and hemodynamically stable antibiotics for prophylactic use as pt is a high risk for infection - has exposed flesh (no skin) on areas of bilateral forearm Wound cultures still pending but growing rare gram pos. cocci in pairs Blood cultures ordered and pending Psyche Polysubstance abuse Assessment/Plan: On methadone taper with valium as needed Dr. Scottie Borjas consulted and following F.E.N. Fluids: Can tolerate PO Electrolytes: within normal limits Nutrition: regular diet Prophylaxis: GI: Protonix 40mg PO DVT: OOB ambulation, SCDs when in bed If prolonged stay will order AC, but pt is ambulatory Disposition. Requires inpatient hospitalization. On discharge will need follow up at the wound care clinic. Likely discharge back to [facility] on Thursday. Full Code. Visit type - Emergency Visit Emergency Visit: Yes ED Registration Date: 10/09/16 Care time: The patient presented to the Emergency Department on the above date and was hospitalized for further evaluation of their emergent condition. - New Patient This patient is new to me today: No - Critical Care Critical Care patient: No - Discharge Referral Referred to [facility] No
[2016-10-11] MEDS: VANCOMYCIN 1,250 MG in DEXTROSE 5%-WATER - 250 ML IVPB SCH (11:47)
--- NOTE | 2016-10-11 12:37 | PN ---
Progress Note, Physician History of Present Illness: doing well but wants to leave doesnt like being here wound dressing changed - Current Medication List Current Medications: Active Medications Benzocaine (Anbesol -) 1 applic MM Q2H PRN PRN Reason: PAIN Last Admin: 10/10/16 22:14 Dose: 1 applic Diazepam (Valium -) 10 mg PO Q4H PRN PRN Reason: WITHDRAWAL(CONT SUBST) Stop: 10/13/16 00:01 Last Admin: 10/10/16 20:40 Dose: 10 mg Vancomycin HCl 1,250 mg/ (Dextrose) 250 mls @ 125 mls/hr IVPB DAILY@1200 MAURY PRN Reason: Protocol Last Admin: 10/11/16 11:47 Dose: 125 mls/hr Piperacillin Sod/Tazobactam Sod (Zosyn 3.375gm Ivpb (Pre-Docked)) 50 mls @ 100 mls/hr IVPB Q8H-IV MAURY PRN Reason: Protocol Last Admin: 10/11/16 10:32 Dose: 100 mls/hr Methadone HCl (Dolophine -) 10 mg PO ONCE ONE Stop: 10/14/16 10:01 Methadone HCl (Dolophine -) 15 mg PO ONCE ONE Stop: 10/12/16 10:01 Methadone HCl (Dolophine -) 15 mg PO ONCE ONE Stop: 10/13/16 10:01 Methadone HCl (Dolophine -) 5 mg PO ONCE@0600 ONE Stop: 10/15/16 06:01 Nicotine (Nicoderm Patch -) 14 mg TD DAILY [facility] Last Admin: 10/11/16 10:10 Dose: Not Given - Objective Vital Signs: Vital Signs Temperature 97.8 F 10/11/16 06:00 Pulse Rate 71 10/11/16 06:00 Respiratory Rate 18 10/11/16 06:00 Blood Pressure 107/65 10/11/16 06:00 O2 Sat by Pulse Oximetry (%) 96 10/10/16 21:00 Constitutional: Yes: Calm, Mild Distress Cardiovascular: Yes: Regular Rate and Rhythm Respiratory: Yes: Regular, CTA Bilaterally Gastrointestinal: Yes: Normal Bowel Sounds, Soft Musculoskeletal: Yes: Other Extremities: Yes: Other Wound/Incision: Yes: Other (as explained in the consult full thickness loss of the skin) Neurological: Yes: Alert, Oriented Psychiatric: Yes: Alert, Oriented Labs: CBC, BMP 10/11/16 08:25 10/11/16 08:25 Assessment/Plan 1. Bilateral Upper Extremity Ulcers 2. PolySubstance Abuset 3. Tobacco Dependency 4. Seizure Disorder plan await wound cx abx started detox noted plastics recommendation
[2016-10-11] MEDS: diazePAM 5 MG TABLET PO PRN (23:32)
[2016-10-12] MEDS: PIPERACILLIN/TAZOB 3.375 GM 50 ML IVPB SCH ×2 (01:12→09:10)
[2016-10-12 08:43] LABS: BASOPHIL 0.4 % (0-2.0); EOSINOPHIL 2.9 % (0-4.5); MCH 23.9 pg (25.7-33.7); MCHC 32.7 g/dl (32.0-36.0); MEAN PLT VOLUME 7.2 fl (7.5-11.1); NEUTROPHILS 44.4 % (42.8-82.8); PLATELET COUNT 244 K/MM3 (134-434); RDW 16.3 % (11.6-15.6); WHITE BLOOD COUNT 3.5 K/mm3 (4.0-10.0)
[2016-10-12 09:09] LABS: ALBUMIN 2.8 g/dl (3.4-5.0); ANION GAP 7 (8-16); CO2 29 mmol/L (21-32); CREATININE 0.7 mg/dL (0.55-1.02); GLUCOSE,RANDOM 100 mg/dL (74-106); SGOT/AST 50 U/L (15-37); SGPT/ALT 34 U/L (12-78); TOT PROT 7.2 g/dl (6.4-8.2)
[2016-10-12 09:11] LABS: ALK PHOS 93 U/L (45-117); BILIRUBIN,TOTAL 0.2 mg/dL (0.2-1.0)
[2016-10-12] MEDS: NICOTINE 14 MG/24 HOURS TOPICAL PATCH TD SCH (09:12)
[2016-10-12] MEDS ORDERED: METHADONE HCL 5 MG TABLET PO ONE (10:00)
--- NOTE | 2016-10-12 10:23 | PN ---
Physical Exam: SUBJECTIVE: Patient seen and examined. Denies chest pain, shortness of breath. Denies arm pain. OBJECTIVE: Patient appears calmer today Explained POC with her and she is in agreement Likely d/c tomorrow to [facility] Wound care sensitivities reviewed Silvadene cream ordered BID - wound care orders placed Vital Signs Period Temp Pulse Resp BP Sys/Richardson Pulse Ox Last 24 Hr 98.0 F-98.5 F 70-91 18-20 108-119/56-61 93 GENERAL: The patient is awake, alert, and fully oriented, in no acute distress. HEAD: Normal with no signs of trauma. EYES: PERRL, extraocular movements intact, sclera anicteric, conjunctiva clear. No ptosis. ENT: Ears normal, nares patent, oropharynx clear without exudates, moist mucous membranes. NECK: Trachea midline, full range of motion, supple. LUNGS: Breath sounds equal, some scattered rhonchi on bilateral lower lobes, mild congestion HEART: Regular rate and rhythm, S1, S2 without murmur, rub or gallop. ABDOMEN: Soft, nontender, nondistended, normoactive bowel sounds, no guarding, no rebound, no hepatosplenomegaly, no masses. EXTREMITIES: 2+ pulses, warm, well-perfused, no edema. NEUROLOGICAL: Normal speech, gait not observed. PSYCH: Anxious @ times SKIN: She has two very large wounds on her bilateral arms and multiple bilateral ankle discoloration, track solorio, scars from iv drug use. Left forearm with large chronic ulcer - exposed flesh: 5cm x 12cm x 0.2 depth Right upper forearm with large chronic ulcer - exposed flesh: 7cm W x 6cmL x 0.2 depth Laboratory Results - last 24 hr 10/12/16 10/12/16 08:00 08:00 WBC 3.5 L RBC 4.62 Hgb 11.0 Hct 33.8 MCV 73.0 L MCHC 32.7 RDW 16.3 H Plt Count 244 MPV 7.2 L Neutrophils % 44.4 Lymphocytes % 43.0 H Monocytes % 9.3 Eosinophils % 2.9 Basophils % 0.4 Sodium 141 Potassium 3.8 Chloride 105 Carbon Dioxide 29 Anion Gap 7 L BUN 9 Creatinine 0.7 Creat Clearance w eGFR > 60 Random Glucose 100 D Calcium 8.0 L Total Bilirubin 0.2 D AST 50 H D ALT 34 D Alkaline Phosphatase 93 Total Protein 7.2 Albumin 2.8 L Active Medications Generic Name Dose Route Start Last Admin Trade Name Freq PRN Reason Stop Dose Admin Benzocaine 1 applic 10/10/16 20:27 10/10/16 22:14 Anbesol - MM 1 applic Q2H PRN Administration PAIN Diazepam 10 mg 10/10/16 00:01 10/11/16 23:32 Valium - PO 10/13/16 00:01 10 mg Q4H PRN Administration WITHDRAWAL(CONT SUBST) Vancomycin HCl 1,250 mg/ 250 mls @ 125 mls/hr 10/10/16 12:00 10/11/16 11:47 Dextrose IVPB 125 mls/hr DAILY@1200 MAURY Administration Protocol Piperacillin Sod/Tazobactam Sod 50 mls @ 100 mls/hr 10/10/16 12:00 10/12/16 09: 10 Zosyn 3.375gm Ivpb (Pre-Docked) IVPB 100 mls/hr Q8H-IV MAURY Administration Protocol Methadone HCl 10 mg 10/14/16 10:00 Dolophine - PO 10/14/16 10:01 ONCE ONE Methadone HCl 15 mg 10/13/16 10:00 Dolophine - PO 10/13/16 10:01 ONCE ONE Methadone HCl 5 mg 10/15/16 06:00 Dolophine - PO 10/15/16 06:01 ONCE@0600 ONE Nicotine 14 mg 10/10/16 21:00 10/12/16 09:12 Nicoderm Patch - TD Not Given DAILY MAURY Silver Sulfadiazine 1 applic 10/12/16 10:00 Silvadene - TP BID MAURY ASSESSMENT/PLAN: Patient is a 36 year old female with a significant past medical history of polysubstance abuse and IV drug use. She presents to the ED on 10/09/2016 and was admitted for opioid dependence and ulcerations of bilateral upper extremity. Patient states she has been taking care of the wounds herself at home and often notices yellow drainage and an odor. She was recently at the ED at [facility] earlier this year and was discharged on PO antibiotics with instructions to follow up with a wound care clinic but she never did. Muscular Skeletal/ID Bilateral upper extremity forearm wounds Assessment/Plan: Large bilateral wound on forearms exposing the underlying flesh There is serosang drainage, mild odor with yellow slough/tissue Patient denies pain to these ulcerations States she has these ulcerations secondary to IV drug use On vanco and zosyn started 10/10/2016 ESR and Creact. protein elevated As per plastic surgery, pt is not currently a candidate for skin grafts She would need to follow up at the wound care clinic for continued wound care WBC within normal limits, remains afebrile and hemodynamically stable antibiotics for prophylactic use as pt is a high risk for infection - has exposed flesh (no skin) on areas of bilateral forearm Wound cultures final with sensitivities, ID following Blood cultures negative to date Psyche Polysubstance abuse Assessment/Plan: On methadone taper with valium as needed Dr. Scottie Borjas consulted and following Patient to be d/c to [place], likely Thursday F.E.N. Fluids: Can tolerate PO Electrolytes: within normal limits Nutrition: regular diet Prophylaxis: GI: Protonix 40mg PO DVT: OOB ambulation, SCDs when in bed If prolonged stay will order AC - defer for now,pt is ambulatory Disposition. Requires inpatient hospitalization. On discharge will need follow up at the wound care clinic. Likely discharge back to [facility] on Thursday. Full Code. Visit type - Emergency Visit Emergency Visit: Yes ED Registration Date: 10/09/16 Care time: The patient presented to the Emergency Department on the above date and was hospitalized for further evaluation of their emergent condition. - New Patient This patient is new to me today: No - Critical Care Critical Care patient: No - Discharge Referral Referred to [facility] No
[2016-10-12] MEDS: VANCOMYCIN 1,250 MG in DEXTROSE 5%-WATER - 250 ML IVPB SCH (13:44)
--- NOTE | 2016-10-12 14:23 | CONSULT ---
Consult Consult Specialty:: infectious diseases Reason for Consultation:: open wounds infected on both arms - History of Present Illness Chief Complaint: send from detox History of Present Illness: 36 y/o female with a past medical history of Polysubstance Abuse- Heroin, Cocaine, Benzodiazepine. Who presents to the emergency department from [facility] for Detox sent in for evaluation of bilateral upper extremity ulcers. The patient states that she has had these wounds since June 2015. The patient states that these wounds initially started out as track solorio but due to stressful life events ) she began to scratch at the wounds. The patient reports that she went to the ED at [facility] for these symptoms in June 2016, had x-rays done and was discharged on PO antibiotics with instructions to follow up with a wound care clinic. The patient reports completing the full course of antibiotics. However, the patient reports that she never followed up with wound care. She reports cleaning the wounds at home with soap and water, using a topical ointment and applying gauze. Patient reports that when she uses the gauze she notes yellow drainage and an odor. all the wounds the patient has are self inflicted patient also is very non cooperative initially but then did allow me to look at the wounds patient had initially gone to detox center and then was send here to be teated for the wounds patient denies any fever nausea or vomiting - History Source History Provided By: Patient, Medical Record Limitations to Obtaining History: Poor Historian - Past Medical History ...LMP: 10/14/14 - Alcohol/Substance Use Hx Alcohol Use: Yes - Smoking History Smoking history: Current every day smoker Have you smoked in the past 12 months: Yes Aproximately how many cigarettes per day: 15 Home Medications - Allergies Allergies/Adverse Reactions: Allergies Allergy/AdvReac Type Severity Reaction Status Date / Time No Known Allergies Allergy Verified 10/09/16 19:05 - Home Medications Home Medications: Ambulatory Orders NK [No Known Home Medication] 10/09/16 Family Disease History - Family Disease History Family Disease History: Diabetes: Grandparent (HTN), Heart Disease: Grandparent , CA: Father (prostate), Mother (laryngeal) Review of Systems - Review of Systems Constitutional: reports: No Symptoms Eyes: reports: No Symptoms HENT: reports: No Symptoms Neck: reports: No Symptoms Cardiovascular: reports: No Symptoms Respiratory: reports: No Symptoms Gastrointestinal: reports: No Symptoms Genitourinary: reports: No Symptoms Musculoskeletal: reports: No Symptoms Integumentary: reports: Change in Color, Erythema, Wound, Other Neurological: reports: No Symptoms Endocrine: reports: No Symptoms Hematology/Lymphatic: reports: No Symptoms Psychiatric: reports: No Symptoms Physical Exam Vital Signs: Vital Signs Temperature 98.5 F 10/12/16 05:56 Pulse Rate 80 10/12/16 09:00 Respiratory Rate 18 10/12/16 09:00 Blood Pressure 116/56 10/12/16 09:00 O2 Sat by Pulse Oximetry (%) 93 L 10/11/16 21:00 Constitutional: Yes: Calm, Mild Distress Eyes: Yes: Conjunctiva Clear HENT: Yes: Atraumatic Neck: Yes: Supple, Trachea Midline Cardiovascular: Yes: Regular Rate and Rhythm Respiratory: Yes: Regular, CTA Bilaterally Gastrointestinal: Yes: Normal Bowel Sounds, Soft Musculoskeletal: Yes: Other Extremities: Yes: Other Integumentary: Yes: Erythema, Other Wound/Incision: Yes: Other (Full thickness loss of skin with fibrinous tissue, granulation tissue skin edges hyperbole,discharge positive, no clinical odor, erythema, odor Moving wrist, fingers well including elbow function) Neurological: Yes: Alert, Oriented Psychiatric: Yes: Alert, Oriented Labs: CBC, BMP 10/12/16 08:00 10/12/16 08:00 Imaging - Results Chest X-ray: Report Reviewed, Image Reviewed X-ray: Report Reviewed, Image Reviewed Assessment/Plan 1. Bilateral Upper Extremity Ulcers 2. PolySubstance Abuset 3. Tobacco Dependency 4. Seizure Disorder plan wound cx abx started detox will ask plastic to see her
--- NOTE | 2016-10-12 14:31 | PN ---
Progress Note, Physician History of Present Illness: seems to be very happy today no complaints boyfreind in room dressing done - Current Medication List Current Medications: Active Medications Benzocaine (Anbesol -) 1 applic MM Q2H PRN PRN Reason: PAIN Last Admin: 10/10/16 22:14 Dose: 1 applic Diazepam (Valium -) 10 mg PO Q4H PRN PRN Reason: WITHDRAWAL(CONT SUBST) Stop: 10/13/16 00:01 Last Admin: 10/11/16 23:32 Dose: 10 mg Ceftriaxone Sodium 2 gm/ (Dextrose) 100 mls @ 200 mls/hr IVPB DAILY [facility] Methadone HCl (Dolophine -) 10 mg PO ONCE ONE Stop: 10/14/16 10:01 Methadone HCl (Dolophine -) 15 mg PO ONCE ONE Stop: 10/13/16 10:01 Methadone HCl (Dolophine -) 5 mg PO ONCE@0600 ONE Stop: 10/15/16 06:01 Nicotine (Nicoderm Patch -) 14 mg TD DAILY [facility] Last Admin: 10/12/16 09:12 Dose: Not Given Silver Sulfadiazine (Silvadene -) 1 applic TP BID [facility] - Objective Vital Signs: Vital Signs Temperature 98.5 F 10/12/16 05:56 Pulse Rate 80 10/12/16 09:00 Respiratory Rate 18 10/12/16 09:00 Blood Pressure 116/56 10/12/16 09:00 O2 Sat by Pulse Oximetry (%) 93 L 10/11/16 21:00 Constitutional: Yes: No Distress, Calm Cardiovascular: Yes: Regular Rate and Rhythm Respiratory: Yes: Regular, CTA Bilaterally Gastrointestinal: Yes: Normal Bowel Sounds, Soft Musculoskeletal: Yes: Other Extremities: Yes: Other Wound/Incision: Yes: Dressing Dry and Intact Neurological: Yes: Alert, Oriented Psychiatric: Yes: Alert, Oriented Labs: CBC, BMP 10/12/16 08:00 10/12/16 08:00 Assessment/Plan 1. Bilateral Upper Extremity Ulcers 2. PolySubstance Abuset 3. Tobacco Dependency 4. Seizure Disorder plan wound cx noted changed abx to ceftriaxone abx started detox noted plastics recommendation
[2016-10-12] MEDS: CEFTRIAXONE 100 ML IVPB SCH (15:25)
[2016-10-12] MEDS: SILVER SULFADIAZINE 1% TOP CREAM 50 GM JAR TP SCH ×2 (15:25→22:34)
[2016-10-12] MEDS: diazePAM 5 MG TABLET PO PRN (22:35)
[2016-10-13 08:18] LABS: BASOPHIL 0.3 % (0-2.0); EOSINOPHIL 2.6 % (0-4.5); MCHC 33.1 g/dl (32.0-36.0); MEAN CELL VOLUME 72.7 fl (80-96); MEAN PLT VOLUME 7.6 fl (7.5-11.1); PLATELET COUNT 256 K/MM3 (134-434); RDW 16.2 % (11.6-15.6); WHITE BLOOD COUNT 4.6 K/mm3 (4.0-10.0)
[2016-10-13 08:43] LABS: ALBUMIN 2.8 g/dl (3.4-5.0); ALK PHOS 94 U/L (45-117); ANION GAP 8 (8-16); BILIRUBIN,TOTAL 0.2 mg/dL (0.2-1.0); CALCIUM 8.2 mg/dL (8.5-10.1); CO2 29 mmol/L (21-32); CREATININE 0.6 mg/dL (0.55-1.02); GLUCOSE,RANDOM 100 mg/dL (74-106); SGOT/AST 55 U/L (15-37); SGPT/ALT 40 U/L (12-78)
[2016-10-13] MEDS: CEFTRIAXONE 100 ML IVPB SCH (09:32)
[2016-10-13] MEDS ORDERED: METHADONE HCL 5 MG TABLET PO ONE (10:00)
[2016-10-13] MEDS: NICOTINE 14 MG/24 HOURS TOPICAL PATCH TD SCH (10:06)
[2016-10-13] MEDS: SILVER SULFADIAZINE 1% TOP CREAM 50 GM JAR TP SCH ×2 (10:08→23:29)
[2016-10-13] MEDS: BENZOCAINE 20 % GEL 9 GM TUBE MM PRN (11:28)
--- NOTE | 2016-10-13 12:44 | PN ---
Physical Exam: SUBJECTIVE: Patient seen and examined at bedside. Wounds unwrapped and examined. OBJECTIVE: Vital Signs Period Temp Pulse Resp BP Sys/Richardson Pulse Ox Last 24 Hr 98 F-98.5 F 73-86 18-20 93-123/46-76 93-95 GENERAL: The patient is awake, alert, and fully oriented, in no acute distress. HEAD: Normal with no signs of trauma. EYES: PERRL, extraocular movements intact, sclera anicteric, conjunctiva clear. No ptosis. LUNGS: Breath sounds equal, clear to auscultation bilaterally, no wheezes, no crackles, no accessory muscle use. HEART: Regular rate and rhythm, S1, S2 without murmur, rub or gallop. ABDOMEN: Soft, nontender, nondistended, normoactive bowel sounds, no guarding, no rebound, no hepatosplenomegaly, no masses. UPPER EXTREMITIES: Wounds on both forearms unwrapped and examined. Full thickness loss; granulating tissue seen on borders of both wounds; copious serosanguinous drainage from both arms Laboratory Results - last 24 hr 10/13/16 10/13/16 05:58 05:58 WBC 4.6 D RBC 4.28 Hgb 10.3 L Hct 31.1 L MCV 72.7 L MCHC 33.1 RDW 16.2 H Plt Count 256 MPV 7.6 Neutrophils % 44.0 Lymphocytes % 42.0 H Monocytes % 11.1 H Eosinophils % 2.6 Basophils % 0.3 Sodium 137 Potassium 4.0 Chloride 100 Carbon Dioxide 29 Anion Gap 8 BUN 10 Creatinine 0.6 Creat Clearance w eGFR > 60 Random Glucose 100 Calcium 8.2 L Total Bilirubin 0.2 AST 55 H ALT 40 Alkaline Phosphatase 94 Total Protein 7.0 Albumin 2.8 L Active Medications Generic Name Dose Route Start Last Admin Trade Name Freq PRN Reason Stop Dose Admin Benzocaine 1 applic 10/10/16 20:27 10/13/16 11:28 Anbesol - MM 1 applic Q2H PRN Administration PAIN Diazepam 10 mg 10/10/16 00:01 10/12/16 22:35 Valium - PO 10/13/16 00:01 10 mg Q4H PRN Administration WITHDRAWAL(CONT SUBST) Ceftriaxone Sodium 100 mls @ 200 mls/hr 10/12/16 14:30 10/13/16 09:32 Rocephin 2gm Ivpb (Pre-Docked) IVPB 200 mls/hr DAILY [facility] Administration Methadone HCl 10 mg 10/14/16 10:00 Dolophine - PO 10/14/16 10:01 ONCE ONE Methadone HCl 5 mg 10/15/16 06:00 Dolophine - PO 10/15/16 06:01 ONCE@0600 ONE Nicotine 14 mg 10/10/16 21:00 10/13/16 10:06 Nicoderm Patch - TD Not Given DAILY [facility] Silver Sulfadiazine 1 applic 10/12/16 10:00 10/13/16 10:08 Silvadene - TP 1 applic BID [facility] Administration ASSESSMENT/PLAN 36 year-old woman with a significant PMH of hepatitis C and polysubstance abuse. Admitted for chronic bilateral forearm ulcers. Bilateral forearm ulcers --patient is new to me today; dressings taken down, copious drainage noted; no odor --seen and evaluated by plastics, not a candidate yet for grafts, wounds are not ready --continue twice-daily dressings with silvadene --continue IV antibiotics per ID Acute opioid withdrawal --completing methadone taper --Valium PRN F/E/N Fluids: PO intake adequate Electrolytes: replete as indicated Nutrition: regular diet Dispo: patient will finish detox here in the hospital; once transitioned to PO antibiotics should follow up in Wound Clinic; per Dr. Kurtz, patient may benefit from wound vac v. porcine skin. Full code. Visit type - Emergency Visit Emergency Visit: Yes ED Registration Date: 10/09/16 Care time: The patient presented to the Emergency Department on the above date and was hospitalized for further evaluation of their emergent condition. - New Patient This patient is new to me today: Yes Date on this admission: 10/13/16 - Critical Care Critical Care patient: No
--- NOTE | 2016-10-13 18:52 | PN ---
Progress Note, Physician History of Present Illness: doing well no complaints - Current Medication List Current Medications: Active Medications Benzocaine (Anbesol -) 1 applic MM Q2H PRN PRN Reason: PAIN Last Admin: 10/13/16 11:28 Dose: 1 applic Diazepam (Valium -) 10 mg PO Q4H PRN PRN Reason: WITHDRAWAL(CONT SUBST) Stop: 10/13/16 00:01 Last Admin: 10/12/16 22:35 Dose: 10 mg Ceftriaxone Sodium (Rocephin 2gm Ivpb (Pre-Docked)) 100 mls @ 200 mls/hr IVPB DAILY [facility] Last Admin: 10/13/16 09:32 Dose: 200 mls/hr Methadone HCl (Dolophine -) 10 mg PO ONCE ONE Stop: 10/14/16 10:01 Methadone HCl (Dolophine -) 5 mg PO ONCE@0600 ONE Stop: 10/15/16 06:01 Nicotine (Nicoderm Patch -) 14 mg TD DAILY [facility] Last Admin: 10/13/16 10:06 Dose: Not Given Silver Sulfadiazine (Silvadene -) 1 applic TP BID [facility] Last Admin: 10/13/16 10:08 Dose: 1 applic - Objective Vital Signs: Vital Signs Temperature 97.5 F L 10/13/16 14:41 Pulse Rate 83 10/13/16 14:41 Respiratory Rate 20 10/13/16 14:41 Blood Pressure 126/62 10/13/16 14:41 O2 Sat by Pulse Oximetry (%) 95 10/13/16 09:00 Constitutional: Yes: No Distress, Calm Cardiovascular: Yes: Regular Rate and Rhythm Respiratory: Yes: Regular, CTA Bilaterally Gastrointestinal: Yes: Normal Bowel Sounds, Soft Musculoskeletal: Yes: Other Extremities: Yes: Other Wound/Incision: Yes: Dressing Dry and Intact, Other (wounds starting to look good) Neurological: Yes: Alert, Oriented Psychiatric: Yes: Alert, Oriented Labs: CBC, BMP 10/13/16 05:58 10/13/16 05:58 Assessment/Plan 1. Bilateral Upper Extremity Ulcers 2. PolySubstance Abuset 3. Tobacco Dependency 4. Seizure Disorder plan wound cx noted continue abx continue wound care
[2016-10-13] MEDS ORDERED: diazePAM 5 MG TABLET ONE (23:11)
[2016-10-13] MEDS: diazePAM 5 MG TABLET PO PRN (23:12)
[2016-10-14] MEDS: CEFTRIAXONE 100 ML IVPB SCH (09:43)
[2016-10-14] MEDS: NICOTINE 14 MG/24 HOURS TOPICAL PATCH TD SCH (09:43)
[2016-10-14] MEDS: SILVER SULFADIAZINE 1% TOP CREAM 50 GM JAR TP SCH ×2 (09:43→22:11)
[2016-10-14] MEDS ORDERED: METHADONE HCL 10 MG TABLET PO ONE (10:00)
--- NOTE | 2016-10-14 17:04 | PN ---
Physical Exam: SUBJECTIVE: Patient seen and examined by me. She is new to me today. Dressings unwrapped and assessed. OBJECTIVE: Vital Signs Period Temp Pulse Resp BP Sys/Richardson Pulse Ox Last 24 Hr 98.0 F-98.9 F 61-97 19-20 92-103/47-62 95 GENERAL: The patient is awake, alert, and fully oriented, in no acute distress. HEAD: Normal with no signs of trauma. EYES: PERRL, extraocular movements intact, sclera anicteric, conjunctiva clear. No ptosis. ENT: Ears normal, nares patent, oropharynx clear without exudates, moist mucous membranes. NECK: Trachea midline, full range of motion, supple. LUNGS: Breath sounds equal, clear to auscultation bilaterally, no wheezes, no crackles, no accessory muscle use. HEART: Regular rate and rhythm, S1, S2 without murmur, rub or gallop. ABDOMEN: Soft, nontender, nondistended, normoactive bowel sounds, no guarding, no rebound, no hepatosplenomegaly, no masses. EXTREMITIES: 2+ pulses, warm, well-perfused, no edema. NEUROLOGICAL: Cranial nerves II through XII grossly intact. Normal speech, gait not observed. PSYCH: Normal mood, normal affect. SKIN: Warm, dry, normal turgor, no rashes noted. Ovoid open wound to right forearm measuring 25cm x 8cm. Granulation tissue appreciated to wound margins. Center of wound is pink without signs of infection. Ovoid open wound to left forearm measuring 22cm x 7cm. Granulation tissue appreciated to wound margins. Center of wound is pink without signs of infection. Active Medications Generic Name Dose Route Start Last Admin Trade Name Freq PRN Reason Stop Dose Admin Benzocaine 1 applic 10/10/16 20:27 10/13/16 11:28 Anbesol - MM 1 applic Q2H PRN Administration PAIN Diazepam 10 mg 10/10/16 00:01 10/13/16 23:12 Valium - PO 10/13/16 00:01 10 mg Q4H PRN Administration WITHDRAWAL(CONT SUBST) Ceftriaxone Sodium 100 mls @ 200 mls/hr 10/12/16 14:30 10/14/16 09:43 Rocephin 2gm Ivpb (Pre-Docked) IVPB 200 mls/hr DAILY [facility] Administration Methadone HCl 5 mg 10/15/16 06:00 Dolophine - PO 10/15/16 06:01 ONCE@0600 ONE Nicotine 14 mg 10/10/16 21:00 10/14/16 09:43 Nicoderm Patch - TD Not Given DAILY [facility] Silver Sulfadiazine 1 applic 10/12/16 10:00 10/14/16 09:43 Silvadene - TP 1 applic BID [facility] Administration ASSESSMENT/PLAN: This is a 36 yo female with history of Hep C and polysubstance abuse. Wounds as noted above. Left forearm wound- -continue Silvadene dressing changes BID -continue Rocephin -monitor for s/s infection -ID following Right forearm wound- -continue Silvadene dressing changes BID -continue Rocephin -monitor for s/s infection -ID following Opiate dependence- -continue with methadone taper -Valium PRN -monitor for s/s withdrawal Tobacco dependence- -smoking cessation counseling offered and refused -continue nicotene patch F/E/N- -PO's as tolerated -replete as needed Visit type - Emergency Visit Emergency Visit: Yes ED Registration Date: 10/09/16 Care time: The patient presented to the Emergency Department on the above date and was hospitalized for further evaluation of their emergent condition. - New Patient This patient is new to me today: Yes Date on this admission: 10/14/16 - Critical Care Critical Care patient: No - Discharge Referral Referred to [facility] Med [facility] No
--- NOTE | 2016-10-14 20:00 | PN ---
Progress Note, Physician History of Present Illness: stable no new events no issues - Current Medication List Current Medications: Active Medications Benzocaine (Anbesol -) 1 applic MM Q2H PRN PRN Reason: PAIN Last Admin: 10/13/16 11:28 Dose: 1 applic Diazepam (Valium -) 10 mg PO Q4H PRN PRN Reason: WITHDRAWAL(CONT SUBST) Stop: 10/13/16 00:01 Last Admin: 10/13/16 23:12 Dose: 10 mg Ceftriaxone Sodium (Rocephin 2gm Ivpb (Pre-Docked)) 100 mls @ 200 mls/hr IVPB DAILY [facility] Last Admin: 10/14/16 09:43 Dose: 200 mls/hr Methadone HCl (Dolophine -) 5 mg PO ONCE@0600 ONE Stop: 10/15/16 06:01 Nicotine (Nicoderm Patch -) 14 mg TD DAILY [facility] Last Admin: 10/14/16 09:43 Dose: Not Given Silver Sulfadiazine (Silvadene -) 1 applic TP BID [facility] Last Admin: 10/14/16 09:43 Dose: 1 applic - Objective Vital Signs: Vital Signs Temperature 98.5 F 10/14/16 18:25 Pulse Rate 73 10/14/16 18:25 Respiratory Rate 20 10/14/16 18:25 Blood Pressure 106/52 10/14/16 18:25 O2 Sat by Pulse Oximetry (%) 95 10/13/16 21:00 Constitutional: Yes: No Distress, Calm Cardiovascular: Yes: Regular Rate and Rhythm Respiratory: Yes: Regular, CTA Bilaterally Gastrointestinal: Yes: Normal Bowel Sounds Musculoskeletal: Yes: Other Extremities: Yes: Other Wound/Incision: Yes: Dressing Dry and Intact Neurological: Yes: Alert, Oriented Psychiatric: Yes: Alert, Oriented Labs: CBC, BMP 10/13/16 05:58 10/13/16 05:58 Assessment/Plan 1. Bilateral Upper Extremity Ulcers 2. PolySubstance Abuset 3. Tobacco Dependency 4. Seizure Disorder plan continue wound care continue current mgmt will see the wounds tomorrow and make a decision rest as per primary
[2016-10-14] MEDS ORDERED: diazePAM 5 MG TABLET ONE (22:09)
[2016-10-14] MEDS: diazePAM 5 MG TABLET PO PRN (22:10)
[2016-10-15] MEDS ORDERED: METHADONE HCL 5 MG TABLET PO ONE (06:00)
[2016-10-15] MEDS: CEFTRIAXONE 100 ML IVPB SCH (09:51)
[2016-10-15] MEDS: SILVER SULFADIAZINE 1% TOP CREAM 50 GM JAR TP SCH (12:00)
--- NOTE | 2016-10-15 12:16 | PN ---
Progress Note, Physician History of Present Illness: patients wound seen looks good clean base good granulation tissue - Current Medication List Current Medications: Active Medications Benzocaine (Anbesol -) 1 applic MM Q2H PRN PRN Reason: PAIN Last Admin: 10/13/16 11:28 Dose: 1 applic Nicotine (Nicoderm Patch -) 14 mg TD DAILY [facility] Last Admin: 10/14/16 09:43 Dose: Not Given Silver Sulfadiazine (Silvadene -) 1 applic TP BID [facility] Last Admin: 10/14/16 22:11 Dose: 1 applic - Objective Vital Signs: Vital Signs Temperature 97.2 F L 10/15/16 06:00 Pulse Rate 63 10/15/16 06:00 Respiratory Rate 20 10/15/16 06:00 Blood Pressure 96/53 10/15/16 06:00 O2 Sat by Pulse Oximetry (%) 96 10/14/16 21:00 Constitutional: Yes: No Distress, Calm Cardiovascular: Yes: Regular Rate and Rhythm Respiratory: Yes: Regular, CTA Bilaterally Gastrointestinal: Yes: Normal Bowel Sounds, Soft Musculoskeletal: Yes: Other Extremities: Yes: Other (bilateral arm wounds noted wounds clean) Integumentary: Yes: Other Wound/Incision: Yes: Clean/Dry, Dressing Removed, Other (dressing redone) Labs: CBC, BMP 10/13/16 05:58 10/13/16 05:58 Assessment/Plan 1. Bilateral Upper Extremity Ulcers 2. PolySubstance Abuset 3. Tobacco Dependency 4. Seizure Disorder plan changed abx to oral continue it for 5 more days patient will need strict wound care if wound care not done patient will become infected again
[2016-10-15 14:23] VITALS: BP 102/54; PULSE 76; TEMP 97.6
[2016-10-15] MEDS: NICOTINE 14 MG/24 HOURS TOPICAL PATCH TD SCH (15:35)
--- NOTE | 2016-10-15 15:46 | DS ---
Physical Exam: SUBJECTIVE: Patient seen and examined OBJECTIVE: Vital Signs Period Temp Pulse Resp BP Sys/Richardson Pulse Ox Last 24 Hr 97.2 F-98.5 F 63-76 20-20 96-106/52-54 96 PHYSICAL EXAM GENERAL: The patient is awake, alert, and fully oriented, in no acute distress. HEAD: Normal with no signs of trauma. EYES: PERRL, extraocular movements intact, sclera anicteric, conjunctiva clear. No ptosis. ENT: Ears normal, nares patent, oropharynx clear without exudates, moist mucous membranes. NECK: Trachea midline, full range of motion, supple. LUNGS: Breath sounds equal, clear to auscultation bilaterally, no wheezes, no crackles, no accessory muscle use. HEART: Regular rate and rhythm, S1, S2 without murmur, rub or gallop. ABDOMEN: Soft, nontender, nondistended, normoactive bowel sounds, no guarding, no rebound, no hepatosplenomegaly, no masses. EXTREMITIES: 2+ pulses, warm, well-perfused, no edema. NEUROLOGICAL: Cranial nerves II through XII grossly intact. Normal speech, gait not observed. PSYCH: Normal mood, normal affect. SKIN: Warm, dry, normal turgor, no rashes noted. Right forearm ovoid wound measuring [id number] present. Wound margins show no s/s infection with granulation present. center of wound beefy red. Left forearm ovoid wound measuring [id number] present. Wound margins show no s/s infection with granulation present. center of wound beefy red. LABS Laboratory Tests 10/09/16 10/09/16 10/09/16 19:00 19:00 19:00 WBC RBC Hgb Hct MCV MCHC RDW Plt Count MPV Neutrophils % Lymphocytes % Monocytes % Eosinophils % Basophils % ESR 42 H Sodium 138 Potassium 3.8 Chloride 105 Carbon Dioxide 26 Anion Gap 7 L BUN 9 Creatinine 0.6 Creat Clearance w eGFR > 60 Random Glucose 96 Calcium 8.2 L Total Bilirubin 0.2 D AST 29 D ALT 22 Alkaline Phosphatase 90 C-Reactive Protein 2.4 H Total Protein 7.8 Albumin 3.0 L 10/09/16 10/10/16 10/10/16 19:50 13:10 13:10 WBC 4.2 D 3.7 L RBC 4.72 4.46 Hgb 11.1 D 10.4 L Hct 34.6 33.0 MCV 73.4 L 73.9 L MCHC 31.9 L 31.6 L RDW 16.5 H D 16.1 H Plt Count 268 D 259 MPV 7.6 7.4 L Neutrophils % 52.1 52.5 Lymphocytes % 37.7 38.0 Monocytes % 6.5 6.7 Eosinophils % 3.3 2.6 Basophils % 0.4 0.2 ESR Sodium 141 Potassium 4.0 Chloride 107 Carbon Dioxide 25 Anion Gap 9 BUN 8 Creatinine 0.6 Creat Clearance w eGFR > 60 Random Glucose 133 H D Calcium 8.4 L Total Bilirubin 0.3 D AST 25 ALT 18 Alkaline Phosphatase 88 C-Reactive Protein Total Protein 7.4 Albumin 2.8 L 10/11/16 10/11/16 10/12/16 08:25 08:25 08:00 WBC 2.9 L 3.5 L RBC 4.75 4.62 Hgb 11.2 11.0 Hct 35.1 33.8 MCV 73.9 L 73.0 L MCHC 32.0 32.7 RDW 16.6 H 16.3 H Plt Count 235 244 MPV 7.4 L 7.2 L Neutrophils % 37.5 L D 44.4 Lymphocytes % 50.5 H D 43.0 H Monocytes % 8.2 9.3 Eosinophils % 3.3 2.9 Basophils % 0.5 0.4 ESR Sodium 142 Potassium 4.3 Chloride 107 Carbon Dioxide 27 Anion Gap 8 BUN 8 Creatinine 0.6 Creat Clearance w eGFR > 60 Random Glucose 81 D Calcium 8.1 L Total Bilirubin 0.3 AST 38 H D ALT 26 D Alkaline Phosphatase 83 C-Reactive Protein Total Protein 7.2 Albumin 2.7 L 10/12/16 10/13/16 10/13/16 08:00 05:58 05:58 WBC 4.6 D RBC 4.28 Hgb 10.3 L Hct 31.1 L MCV 72.7 L MCHC 33.1 RDW 16.2 H Plt Count 256 MPV 7.6 Neutrophils % 44.0 Lymphocytes % 42.0 H Monocytes % 11.1 H Eosinophils % 2.6 Basophils % 0.3 ESR Sodium 141 137 Potassium 3.8 4.0 Chloride 105 100 Carbon Dioxide 29 29 Anion Gap 7 L 8 BUN 9 10 Creatinine 0.7 0.6 Creat Clearance w eGFR > 60 > 60 Random Glucose 100 D 100 Calcium 8.0 L 8.2 L Total Bilirubin 0.2 D 0.2 AST 50 H D 55 H ALT 34 D 40 Alkaline Phosphatase 93 94 C-Reactive Protein Total Protein 7.2 7.0 Albumin 2.8 L 2.8 L HOSPITAL COURSE: Date of Admission:10/09/16 Date of Discharge: 10/15/16 Minutes to complete discharge: 30 Discharge Summary Reason For Visit: OPIOID DEPENDENCE,ULCER OF UPPER EXTREMITY Current Active Problems DVT prophylaxis (Acute) Opioid dependence with withdrawal (Acute) Polysubstance (including opioids) dependence with physiol dependence (Acute) Ulcer of upper extremity (Acute) Hospital Course: Initial hospital course: The patient is a 36 year old female, with a significant past medical history of hepatitis C and polysubstance abuse (Heroin/Cocaine/Benzodiazepines - intermittent use since age 17), who presented to the emergency department from [facility] with wounds to the bilateral upper extremities. The patient presented to [facility] 10/09/16 requesting detox but after an initial evaluation at [facility], she was sent to the ED for further evaluation regarding the wounds to the bilateral upper extremities. The patient states that she has had these wounds since June 2015. The patient states that these wounds initially started out as track solorio but due to stressful life events (the passing of her father after a terminal illness) she began to scratch at the wounds. The patient reports that she went to the ED at [facility] for these symptoms in June 2016, had x-rays done and was discharged on PO antibiotics with instructions to follow up with a wound care clinic. However, the patient reports that she never followed up with wound care. The patient reported a cough , but notes that this has been a chronic issue for years, a result of her daily smoking. The patient denied loss of sensation to the upper extremities. The patient denied chest pain or shortness of breath. The patient denied fever, chills, nausea, vomiting, diarrhea or dysuria. The patient was most recently tested for HIV in June 2016 while at the [facility] ED, the result of which she reports was negative. LMP: the patient reports very irregular menstrual cycles (3 menstrual periods in the past 6 years). Hospital course by problem list: Bilateral forearm wounds -Silvadene dressing changes BID -Rocephin IV given for 4 days then transitioned to PO Bactrim per MD Comer. -f/u with wound clinic for VAC vs porcine graft Opiate dependence -no signs of w/d -finished methadone taper 10/15/16 Tobacco dependence -cessation counseling offered and refused Condition: Stable - Instructions Diet, Activity, Other Instructions: Follow up in the wound clinic in 1 week . you have appointment october [address] [facility]. Take Bactrim as prescribed. Finish ALL pills. Change dressings twice a day using Silvadene cream. Avoid using non-prescription drugs. Return to the Emergency Department for increased or foul smelling drainage from wounds. Referrals: Sudhir Taveras MD [Staff Physician] - Disposition: HOME - Home Medications Comprehensive Discharge Medication List: Ambulatory Orders Silver Sulfadiazine 1% Top Cr [Silvadene -] 1 applic TP BID #1 jar 10/15/16 Sulfamethoxazole/Trimethoprim [Bactrim DS -] 1 each PO BID #10 tablet 10/15/16 This patient is new to me today: No Emergency Visit: Yes ED Registration Date: 10/09/16 Care time: The patient presented to the Emergency Department on the above date and was hospitalized for further evaluation of their emergent condition. Critical Care patient: No - Discharge Referral Referred to [facility] Med [facility].C[facility] Yes Physician Referral: Sudhir Zheng MD ([facility]) (in 1 week)
--- NOTE | 2016-10-15 17:02 | PN ---
Physical Exam: SUBJECTIVE: Patient seen and examined in chair. No acute changes overnight. OBJECTIVE: Vital Signs Period Temp Pulse Resp BP Sys/Richardson Pulse Ox Last 24 Hr 97.2 F-98.5 F 63-76 20-20 96-106/52-54 96 GENERAL: The patient is awake, alert, and fully oriented, in no acute distress. HEAD: Normal with no signs of trauma. EYES: PERRL, extraocular movements intact, sclera anicteric, conjunctiva clear. No ptosis. ENT: Ears normal, nares patent, oropharynx clear without exudates, moist mucous membranes. NECK: Trachea midline, full range of motion, supple. LUNGS: Breath sounds equal, clear to auscultation bilaterally, no wheezes, no crackles, no accessory muscle use. HEART: Regular rate and rhythm, S1, S2 without murmur, rub or gallop. ABDOMEN: Soft, nontender, nondistended, normoactive bowel sounds, no guarding, no rebound, no hepatosplenomegaly, no masses. EXTREMITIES: 2+ pulses, warm, well-perfused, no edema. NEUROLOGICAL: Cranial nerves II through XII grossly intact. Normal speech, gait not observed. PSYCH: Normal mood, normal affect. SKIN: Warm, dry, normal turgor, no rashes noted. Right forearm ovoid wound measuring [id number] present. Wound margins show no s/s infection with granulation present. center of wound beefy red. Left forearm ovoid wound measuring [id number] present. Wound margins show no s/s infection with granulation present. center of wound beefy red. Active Medications Generic Name Dose Route Start Last Admin Trade Name Freq PRN Reason Stop Dose Admin Benzocaine 1 applic 10/10/16 20:27 10/13/16 11:28 Anbesol - MM 1 applic Q2H PRN Administration PAIN Nicotine 14 mg 10/10/16 21:00 10/15/16 15:35 Nicoderm Patch - TD Not Given DAILY MAURY Silver Sulfadiazine 1 applic 10/12/16 10:00 10/15/16 12:00 Silvadene - TP 1 applic BID MAURY Administration Trimethoprim/Sulfamethoxazole 1 each 10/15/16 22:00 Bactrim Ds - PO BID [facility] ASSESSMENT/PLAN: This is a 36 yo woman with history of PSA who presents with bilateral forearm ulcers as noted above. Currently being followed by REX Comer. IV Rocephin continues. Bilateral forearm wounds -continue Silvadene dressing changes BID -stop Rocephin -transition to PO Bactrim per MD Comer. Opiate dependence -monitor for signs of w/d -finish methadone taper today Tobacco dependence -nicotene patch -cessation counseling offered and refused Dispo: D/C home Visit type - Emergency Visit Emergency Visit: Yes ED Registration Date: 10/09/16 Care time: The patient presented to the Emergency Department on the above date and was hospitalized for further evaluation of their emergent condition. - New Patient This patient is new to me today: No - Critical Care Critical Care patient: No - Discharge Referral Referred to [facility] Med [facility].C.: Yes Physician Referral: Sudhir Zheng MD ([facility])
[2016-10-15] MEDS ORDERED: SULFAMETHOXAZOLE/TRIMETHOPRIM 800MG/160MG D.S. TABLET PO ONE (17:38)
[2016-10-15] MEDS ORDERED: PT OWN MED DRAWER 7, Y5N ONE (18:36)
[2016-10-15] MEDS ORDERED: SULFAMETHOXAZOLE/TRIMETHOPRIM 800MG/160MG D.S. TABLET PO SCH (22:00)
== END 2016-10-15 19:11 | disposition home or self-care (01) | DRG 380 ==
LOC: JER 18:01 → JERBED 20:58 → J5S 10-10 02:45
PROVIDERS: ADMIT Internal Medicine; ATTEND Nurse Practitioner Acute Care
DX: L98.499 Non-pressure chronic ulcer of skin of other sites with unspecified severity (principal); F14.20 Cocaine dependence, uncomplicated; F11.23 Opioid dependence with withdrawal; F41.9 Anxiety disorder, unspecified; F32.9 Major depressive disorder, single episode, unspecified; F43.10 Post-traumatic stress disorder, unspecified; F17.210 Nicotine dependence, cigarettes, uncomplicated; G40.909 Epilepsy, unspecified, not intractable, without status epilepticus; B19.20 Unspecified viral hepatitis C without hepatic coma
CPT/HCPCS: 36415; 71020-TC; 73090-TC-LT; 73090-TC-RT; 80053; 85025; 85651; 86140; 87040; 87070; 87186; 87205; 93005; 93010; 99284-25

== ENCOUNTER 2020-06-04 09:54 | Inpatient (IN) | payer OTHER ==
[2020-06-04 10:50] VITALS: BMI 18.8
[2020-06-04] MEDS ORDERED: MAG HYDROX/AL HYDROX/SIMETH 30 ML UNIT-DOSE CUP PO PRN (11:25)
[2020-06-04] MEDS ORDERED: ONDANSETRON *ODT* 4 MG TABLET SL PRN (11:25)
[2020-06-04] MEDS ORDERED: MAGNESIUM CITRATE 300 ML BOTTLE PO PRN (11:25)
[2020-06-04] MEDS ORDERED: IBUPROFEN 400 MG TABLET (FP) PO PRN (11:25)
[2020-06-04] MEDS ORDERED: ACETAMINOPHEN 325 MG TABLET (FP) PO PRN ×2 (11:25)
[2020-06-04] MEDS ORDERED: MAGNESIUM HYDROX 2400MG/30ML ORAL SUSPENSION 30 ML CUP PO PRN (11:25)
[2020-06-04] MEDS ORDERED: BISMUTH SUBSALICYLATE 262 MG/15 ML BTL PO PRN (11:25)
[2020-06-04] MEDS ORDERED: MENTHOL/PHENOL 1 EACH UD MM PRN (11:25)
[2020-06-04] MEDS ORDERED: METHADONE HCL 10 MG TABLET (FOR DETOX USE ONLY) PO ONE (11:25)
[2020-06-04] MEDS ORDERED: AMMONIUM LACTATE 12% LOTION 225 GM BOTTLE TP PRN (11:31)
[2020-06-04] MEDS: NICOTINE 21 MG/24 HOURS TOPICAL PATCH TD SCH (12:03)
[2020-06-04 14:15] LABS: HEMATOCRIT 38.2 % (32.4-45.2); HEMOGLOBIN 12.2 GM/dL (10.7-15.3); MCH 24.3 pg (25.7-33.7); MCHC 31.9 g/dl (32.0-36.0); MEAN CELL VOLUME 76.4 fl (80-96); MEAN PLT VOLUME 8.4 fl (7.5-11.1); PLATELET COUNT 244 K/MM3 (134-434); RBC 4.99 M/mm3 (3.60-5.2); RDW 19.2 % (11.6-15.6); WHITE BLOOD COUNT 6.5 K/mm3 (4.0-10.0)
[2020-06-04 14:46] LABS: ALBUMIN 3.6 g/dl (3.4-5.0); BILIRUBIN,TOTAL 0.2 mg/dL (0.2-1); BLOOD UREA NITROGEN 10.1 mg/dL (7-18); CALCIUM 9.5 mg/dL (8.5-10.1); CREATININE 0.8 mg/dL (0.55-1.3); POTASSIUM 4.3 mmol/L (3.5-5.1); TOT PROT 7.8 g/dl (6.4-8.2)
[2020-06-04] MEDS: LORazepam 1 MG TABLET PO PRN (15:01)
[2020-06-04] MEDS: hydrOXYzine PAMOATE 25 MG CAPSULE (FP) PO SCH ×3 (15:11→23:09)
[2020-06-04 16:36] LABS: HIV INTERPRETATION NEGATIVE (NEGATIVE)
[2020-06-04] MEDS: LORazepam 2 MG TABLET PO SCH ×2 (17:41→23:09)
[2020-06-04] MEDS: cloNIDine HCL 0.1 MG TABLET PO PRN (19:36)
[2020-06-04] MEDS: MELATONIN 5 MG TABLETS PO SCH (23:09)
[2020-06-04] MEDS: MIRTAZAPINE 15 MG TABLET (FP) PO SCH (23:09)
[2020-06-04] MEDS: THIAMINE HCL 100 MG TABLET (FP) PO SCH (23:09)
[2020-06-05] MEDS: cloNIDine HCL 0.1 MG TABLET PO PRN ×4 (03:10→23:31)
[2020-06-05] MEDS: hydrOXYzine PAMOATE 25 MG CAPSULE (FP) PO SCH ×5 (05:04→22:05)
[2020-06-05] MEDS: LORazepam 2 MG TABLET PO SCH ×4 (05:04→22:05)
[2020-06-05] MEDS: NICOTINE POLACRILEX 2 MG GUM BUC PRN ×3 (05:04→17:37)
[2020-06-05] MEDS ORDERED: MASKS NR ONE (06:49)
[2020-06-05] MEDS ORDERED: METHADONE HCL 10 MG TABLET (FOR DETOX USE ONLY) ONE (08:52)
[2020-06-05] MEDS ORDERED: METHADONE HCL 5 MG TABLET (FOR DETOX USE ONLY) ONE (08:52)
[2020-06-05] MEDS ORDERED: METHADONE (DETOX) 20 MG, METHADONE (DETOX) 5 MG PO ONE (10:00)
[2020-06-05] MEDS ORDERED: PRENATAL VITAMINS W/ FOLIC ACID TABLET (FP) PO SCH (10:00)
[2020-06-05] MEDS: NICOTINE 21 MG/24 HOURS TOPICAL PATCH TD SCH (10:11)
[2020-06-05] MEDS: LORazepam 1 MG TABLET PO PRN (14:31)
[2020-06-05] MEDS: METHOCARBAMOL 500 MG TABLET PO PRN ×2 (14:31→23:14)
[2020-06-05] MEDS: SILVER SULFADIAZINE 1% TOP CREAM 50 GM JAR TP SCH ×2 (15:09→22:06)
[2020-06-05 18:49] VITALS: BP 114/72; PULSE 89
[2020-06-05 20:31] VITALS: TEMP 97.1
[2020-06-05] MEDS: MIRTAZAPINE 15 MG TABLET (FP) PO SCH (22:05)
[2020-06-05] MEDS: MELATONIN 5 MG TABLETS PO SCH (22:05)
[2020-06-05] MEDS: THIAMINE HCL 100 MG TABLET (FP) PO SCH (22:05)
[2020-06-06] MEDS ORDERED: LORazepam 1 MG TABLET PO SCH (05:00)
[2020-06-06] MEDS ORDERED: METHADONE HCL 10 MG TABLET (FOR DETOX USE ONLY) PO ONE (10:00)
[2020-06-07] MEDS ORDERED: LORazepam 0.5 MG TABLET PO PRN
[2020-06-07] MEDS ORDERED: LORazepam 0.5 MG TABLET PO SCH (05:00)
[2020-06-07] MEDS ORDERED: METHADONE (DETOX) 10 MG, METHADONE (DETOX) 5 MG PO ONE (10:00)
== END 2020-06-06 00:32 | disposition left against medical advice (07) | DRG 770 ==
LOC: YASAS 09:54 → Y6N 11:11
PROVIDERS: ADMIT Allergy & Immunology; ATTEND Allergy & Immunology
PROC: HZ2ZZZZ Detoxification Services for Substance Abuse Treatment (ICD-10-PCS; principal; 2020-06-04)
DX: F11.23 Opioid dependence with withdrawal (principal); F13.230 Sedative, hypnotic or anxiolytic dependence with withdrawal, uncomplicated; F17.210 Nicotine dependence, cigarettes, uncomplicated; F43.10 Post-traumatic stress disorder, unspecified; F19.282 Other psychoactive substance dependence with psychoactive substance-induced sleep disorder; F50.89 Other specified eating disorder; L98.493 Non-pressure chronic ulcer of skin of other sites with necrosis of muscle; Z86.19 Personal history of other infectious and parasitic diseases; Z86.69 Personal history of other diseases of the nervous system and sense organs; Z56.0 Unemployment, unspecified
CPT/HCPCS: 36415; 80053; 81025; 85027; 86780; 87389; 93005; 93010; C9803; J0735; U0003

== ENCOUNTER 2020-06-06 10:57 | Inpatient (IN) | payer OTHER ==
[~2020-06-06 10:57] MED LIST: METHADONE HCL 10 MG TABLET (FOR DETOX USE ONLY) PO ONE
[2020-06-06 11:45] VITALS: BMI 20.5
[2020-06-06] MEDS ORDERED: METHOCARBAMOL 500 MG TABLET PO PRN (11:57)
[2020-06-06] MEDS ORDERED: cloNIDine HCL 0.1 MG TABLET PO PRN (11:57)
[2020-06-06] MEDS ORDERED: MAG HYDROX/AL HYDROX/SIMETH 30 ML UNIT-DOSE CUP PO PRN (11:57)
[2020-06-06] MEDS ORDERED: MAGNESIUM CITRATE 300 ML BOTTLE PO PRN (11:57)
[2020-06-06] MEDS ORDERED: BISMUTH SUBSALICYLATE 262 MG/15 ML BTL PO PRN (11:57)
[2020-06-06] MEDS ORDERED: MENTHOL/PHENOL 1 EACH UD MM PRN (11:57)
[2020-06-06] MEDS ORDERED: IBUPROFEN 400 MG TABLET (FP) PO PRN (11:57)
[2020-06-06] MEDS ORDERED: MAGNESIUM HYDROX 2400MG/30ML ORAL SUSPENSION 30 ML CUP PO PRN (11:57)
[2020-06-06] MEDS ORDERED: ONDANSETRON *ODT* 4 MG TABLET SL PRN (11:57)
[2020-06-06] MEDS ORDERED: ACETAMINOPHEN 325 MG TABLET (FP) PO PRN ×2 (11:57)
[2020-06-06] MEDS: LORazepam 1 MG TABLET PO SCH ×4 (13:23→22:14)
[2020-06-06] MEDS: hydrOXYzine PAMOATE 25 MG CAPSULE (FP) PO SCH ×3 (13:39→22:14)
[2020-06-06] MEDS: NICOTINE 14 MG/24 HOURS TOPICAL PATCH TD SCH (13:39)
[2020-06-06] MEDS: NICOTINE POLACRILEX 2 MG GUM BUC PRN (13:40)
[2020-06-06] MEDS: THIAMINE HCL 100 MG TABLET (FP) PO SCH (22:14)
[2020-06-06] MEDS: MELATONIN 5 MG TABLETS PO SCH (22:14)
[2020-06-06] MEDS: MIRTAZAPINE 15 MG TABLET (FP) PO SCH (22:14)
[2020-06-06] MEDS: SILVER SULFADIAZINE 1% TOP CREAM 50 GM JAR TP SCH (22:16)
[2020-06-07] MEDS: hydrOXYzine PAMOATE 25 MG CAPSULE (FP) PO SCH ×5 (05:15→22:05)
[2020-06-07] MEDS: LORazepam 0.5 MG TABLET PO SCH ×4 (05:15→22:05)
[2020-06-07] MEDS: NICOTINE POLACRILEX 2 MG GUM BUC PRN ×2 (07:10→10:24)
[2020-06-07] MEDS: LORazepam 1 MG TABLET PO PRN ×2 (07:44→12:40)
[2020-06-07] MEDS ORDERED: METHADONE HCL 10 MG TABLET (FOR DETOX USE ONLY) ONE (08:24)
[2020-06-07] MEDS ORDERED: METHADONE HCL 5 MG TABLET (FOR DETOX USE ONLY) ONE (08:25)
[2020-06-07] MEDS ORDERED: METHADONE (DETOX) 10 MG, METHADONE (DETOX) 5 MG PO ONE (10:00)
[2020-06-07] MEDS: PRENATAL VITAMINS W/ FOLIC ACID TABLET (FP) PO SCH (10:21)
[2020-06-07] MEDS: NICOTINE 14 MG/24 HOURS TOPICAL PATCH TD SCH (10:23)
[2020-06-07] MEDS: SILVER SULFADIAZINE 1% TOP CREAM 50 GM JAR TP SCH ×2 (10:23→21:50)
[2020-06-07] MEDS: MIRTAZAPINE 15 MG TABLET (FP) PO SCH (22:05)
[2020-06-07] MEDS: THIAMINE HCL 100 MG TABLET (FP) PO SCH (22:05)
[2020-06-07] MEDS: MELATONIN 5 MG TABLETS PO SCH (22:06)
[2020-06-08] MEDS ORDERED: LORazepam 0.5 MG TABLET PO ONE (05:00)
[2020-06-08] MEDS: hydrOXYzine PAMOATE 25 MG CAPSULE (FP) PO SCH ×5 (05:53→22:00)
[2020-06-08] MEDS: NICOTINE 14 MG/24 HOURS TOPICAL PATCH TD SCH (09:36)
[2020-06-08] MEDS: PRENATAL VITAMINS W/ FOLIC ACID TABLET (FP) PO SCH (09:36)
[2020-06-08] MEDS: SILVER SULFADIAZINE 1% TOP CREAM 50 GM JAR TP SCH ×2 (09:39→22:00)
[2020-06-08] MEDS ORDERED: METHADONE HCL 10 MG TABLET (FOR DETOX USE ONLY) PO ONE (10:00)
[2020-06-08] MEDS: NICOTINE POLACRILEX 2 MG GUM BUC PRN ×2 (14:43→19:26)
[2020-06-08] MEDS: LORazepam 1 MG TABLET PO PRN ×2 (17:11→22:02)
[2020-06-08] MEDS: MELATONIN 5 MG TABLETS PO SCH (22:00)
[2020-06-08] MEDS: MIRTAZAPINE 15 MG TABLET (FP) PO SCH (22:00)
[2020-06-08] MEDS: THIAMINE HCL 100 MG TABLET (FP) PO SCH (22:00)
[2020-06-09] MEDS ORDERED: LORazepam 0.5 MG TABLET PO PRN
[2020-06-09] MEDS: hydrOXYzine PAMOATE 25 MG CAPSULE (FP) PO SCH ×2 (05:11→09:00)
[2020-06-09] MEDS ORDERED: METHADONE HCL 5 MG TABLET (FOR DETOX USE ONLY) PO ONE (06:00)
[2020-06-09] MEDS: SILVER SULFADIAZINE 1% TOP CREAM 50 GM JAR TP SCH (09:00)
[2020-06-09] MEDS: PRENATAL VITAMINS W/ FOLIC ACID TABLET (FP) PO SCH (09:00)
[2020-06-09] MEDS: NICOTINE 14 MG/24 HOURS TOPICAL PATCH TD SCH (09:00)
[2020-06-09 09:03] VITALS: BP 102/62; PULSE 83; TEMP 98
== END 2020-06-09 09:10 | disposition home or self-care (01) | DRG 773 ==
LOC: YASAS 10:57 → Y3N 12:22
PROVIDERS: ADMIT Allergy & Immunology; ATTEND Allergy & Immunology
PROC: HZ2ZZZZ Detoxification Services for Substance Abuse Treatment (ICD-10-PCS; principal; 2020-06-06)
DX: F11.23 Opioid dependence with withdrawal (principal); F13.230 Sedative, hypnotic or anxiolytic dependence with withdrawal, uncomplicated; F14.20 Cocaine dependence, uncomplicated; F17.210 Nicotine dependence, cigarettes, uncomplicated; F12.10 Cannabis abuse, uncomplicated; F43.10 Post-traumatic stress disorder, unspecified; F50.89 Other specified eating disorder; L98.493 Non-pressure chronic ulcer of skin of other sites with necrosis of muscle; Z86.19 Personal history of other infectious and parasitic diseases
CPT/HCPCS: 81025; C9803; Q0162; U0003